=== PATIENT | female | born 1950 | race Caucasian/White ===

== ENCOUNTER → 2019-12-28 | Outpatient (CLI) | payer MEDICARE, OTHER ==
--- NOTE | 2019-12-28 11:47 | RAD ---
Examination: 1. Ultrasound-guided right breast core needle biopsy. 2. Right diagnostic post procedure mammogram. INDICATION: 69-year-old woman status post previous left mastectomy approximately 9 years ago for breast cancer presents with a palpable lump recommended for biopsy following right breast diagnostic imaging. COMPARISON: Right mammogram and targeted right breast ultrasound of 12/11/2019. TECHNIQUE AND FINDINGS: An appropriate procedural pause was observed and informed consent obtained. Using standard sterile technique, ultrasound guidance and local anesthesia, two 14-gauge core biopsy samples were obtained of the periareolar right breast mass at the 12:00 position and samples were placed in formalin. An S-shaped biopsy marker was deployed in the mass and hemostasis was ensured with direct breast compression for 10 minutes. A right digital postprocedure mammogram in the CC and ML projections showed satisfactory positioning of the biopsy marker at the margin of the mass with no postbiopsy hematoma. Patient tolerated the procedure without incident. The puncture site was dressed and postprocedure instructions were reviewed prior to patient discharge follow up with her referring provider. IMPRESSION: Successful right breast core needle biopsy of a palpable 2 cm lobulated mass at the right 12:00 position 0.5 cm from the nipple. Pathology results are pending. An addendum will be issued once pathology results available. Electronically signed by: Hanna Yanes MD (12/28/2019 11:44 AM) [id number]
--- NOTE | 2019-12-29 18:06 | PATHOLOGY ---
[facility] Accession Number: [id number] . 01 Material submitted: . breast - RIGHT BREAST MASS, 12:00, 0.5CMFN. Modifiers: right, 12:00 . 01 Clinical history: . Right breast mass 12:00 0.5 cm FN 2.0 cm . 02 Diagnosis: Breast tissue, right breast mass 12:00 needle biopsies: - INVASIVE DUCTAL CARCINOMA, HISTOLOGIC GRADE 2. SEE COMMENT. (JPM:[facility] 12/29/2019) [facility] 12/29/2019 1726 Local . 02 Comment: Sections of the right breast mass at 12:00 needle biopsy reveal an invasive mammary carcinoma. The tumor shows little tubule formation. Tumor cells show moderate nuclear pleomorphism. There are several mitotic figures present. The invasive carcinoma measures up to 0.7 cm in greatest dimension on the glass slide. The morphologic findings are supportive of the diagnosis of an invasive ductal carcinoma, grade 2. There are tumor associated calcifications. There is no lymphovascular tumor invasion. The case is also examined by Dr. Mei, who concurs with the diagnosis. . Breast prognostic studies will be obtained, the results of which will be reported separately. . The results are reported to Dr. Tenorio on 12/29/2019. (JPM:[facility] 12/29/2019) . 02 Electronically signed: . Ryan Sweet MD, Pathologist NPI- [id number] . 01 Gross description: . The specimen is received in formalin, labeled "Becka Garcia, right breast 12:00 0.5 cmFN" and consists of 2 needle cores of pink-palomo breast tissue measuring 1.2 cm and 1.3 cm in length and 0.2 cm each in diameter which are entirely submitted in A1-A2. They were collected at 10:45 AM on 12/28/2019 and placed in formalin at 10:45 AM. The cold ischemic time is less than 1 minute and the total formalin fixation time is greater than 6 hours but less than 72 hours. (SDY; 12/28/2019) SYU/[facility]U 12/28/2019 1714 Local . 02 Pathologist provided ICD-10: C50.911 . 02 CPT . 362474 Specimen Comment: A courtesy copy of this report has been sent to [phone], [phone] Specimen Comment: [id number], Specimen Comment: Report sent to ,DR TENORIO / Performed at: 01 [facility] [address], [place] [id number] MD Miguel Holman MD Phone: [phone] Performed at: 02 [facility] [address] [place], [place] [id number] MD Ryan Sweet MD Phone: [phone]
== END | disposition home or self-care (01) ==
LOC: US 09:55
PROVIDERS: ATTEND Surgery
DX: C50.911 Malignant neoplasm of unspecified site of right female breast (principal); Z86.000 Personal history of in-situ neoplasm of breast; Z87.898 Personal history of other specified conditions
CPT/HCPCS: 76942; 77065; 88305; 88361; C1713

== ENCOUNTER → 2020-01-13 | Outpatient (CLI) | payer MEDICARE, OTHER ==
[~2020-01-13] MED LIST: ATOR40TA59 PO; GLIP10TA13 PO; INSU100I13 SQ; LISI-130 PO; METF500T16 PO; SITA100T PO
== END | disposition home or self-care (01) ==
LOC: LAB 13:07
PROVIDERS: ATTEND Surgery
DX: Z11.59 Encounter for screening for other viral diseases (principal); C50.911 Malignant neoplasm of unspecified site of right female breast; Z88.0 Allergy status to penicillin; Z88.6 Allergy status to analgesic agent
CPT/HCPCS: U0003-CS

== ENCOUNTER 2020-01-18 10:11 | Observation (INO) | payer MEDICARE, OTHER ==
[~2020-01-18] VITALS: Ht 165.1 cm; Wt 77.0 kg
[~2020-01-18 10:11] MED LIST changes: -ATOR40TA59 PO; -GLIP10TA13 PO; +HYDROmorphone 2 MG/ML VIAL IV PRN; -INSU100I13 SQ; +ISOSULFAN BLUE 1% 50 MG/5 ML VIAL. SQ ONE; +IV RINGERS,LACTATED 1000ML 1,000 ML IV SCH; +LIDOCAINE 1% PF 2 ML VIAL. ID PRN; -LISI-130 PO; -METF500T16 PO; +MORPHINE SULFATE 2 MG/ML VIAL. IV PRN; +ONDANSETRON PF 4 MG/2 ML VIAL. IV PRN; +PROCHLORPERAZINE 10 MG/2 ML VIAL. IV PRN; -SITA100T PO; +fentaNYL PF VIAL 100 MCG/2 ML VIAL IV PRN
[2020-01-18] MEDS ORDERED: LIDOCAINE 2% PF 5 ML VIAL. ONE (10:26)
[2020-01-18] MEDS ORDERED: PROPOFOL 10 MG/ML (20ML) VIAL. IV ONE (10:26)
[2020-01-18] MEDS ORDERED: fentaNYL PF VIAL 100 MCG/2 ML VIAL ONE ×3 (10:27→14:39)
[2020-01-18] MEDS ORDERED: DEXAMETHASONE SOD PHOS 4 MG/ML VIAL ONE (10:27)
[2020-01-18] MEDS ORDERED: ONDANSETRON PF 4 MG/2 ML VIAL. ONE (10:27)
[2020-01-18] MEDS ORDERED: LISI-130 PO (10:58)
[2020-01-18] MEDS ORDERED: GLIP10TA13 PO (10:58)
[2020-01-18] MEDS ORDERED: METF500T16 PO (10:58)
[2020-01-18] MEDS ORDERED: ATOR40TA59 PO (10:59)
[2020-01-18] MEDS ORDERED: SITA100T PO (10:59)
[2020-01-18] MEDS ORDERED: INSULIN LISPRO 100 UNIT/ML 3ML VIAL for OP,RR ONLY. SQ PRN (11:15)
--- NOTE | 2020-01-18 13:53 | RAD ---
Right breast radiopharmaceutical Injection for sentinel node mapping. INDICATION: Recent diagnosis of right breast invasive breast cancer. Previous history of left breast cancer. COMPARISON: Ultrasound-guided right breast core needle biopsy of 12/28/2019. TECHNIQUE AND FINDINGS: An appropriate procedural pause was observed and informed consent obtained. Using standard sterile technique, a total of 1 mCi of lymphoseek was injected in a single periareolar injection in the right breast at 11:43 AM on 01/18/2020. Patient tolerated the procedure without incident. IMPRESSION: Successful right breast radiopharmaceutical injection for sentinel node mapping intraoperatively later the same day. Electronically signed by: Hanna Yanes MD (01/18/2020 1:50 PM) [id number]
[2020-01-18] MEDS ORDERED: SEVOFLURANE 61 TO 120 MINUTES. IH ONE (14:00)
--- NOTE | 2020-01-18 14:22 | PDOC4 ---
Operative Note Operative Note Operative Note: Preoperative Diagnosis: Right breast cancer Postoperative Diagnosis: Same Procedure: Right simple mastectomy with sentinel lymph node biopsy Surgeon: Delfino [employer] Inspector: ASHTYN Love Anesthesia: General EBL: 50 mL Specimen: Howell lymph node 1, 2 to pathology; right breast stitch at 12:00 to pathology Drains: 19 [place] BRENDON drain to chest wall Complications: None Indication: The patient is a 69-year-old female who was found to have a right breast cancer following recent biopsy. She has no interest in breast conservation and prefers a complete mastectomy. We plan to include a sentinel lymph node biopsy. The details and risks of surgery were discussed with the patient. The risks include bleeding, infection, wound healing problems, pain, anesthetic risk, seroma formation, potential need for additional surgery or procedure. She understands and would like to proceed. Description: The patient was taken to the operating room and placed supine on the operating table. General anesthesia was performed. The right breast and axilla were prepped with ChloraPrep and draped in a standard surgical manner. Five mL of Lymphazurin were injected deep to the nipple and areolar complex. Several minutes were allowed to elapse. An elliptical tracing was made around the nipple and areola extending from the medial to lateral chest. The superior lateral aspect of this tracing was then opened with a scalpel. Cautery dissecti on was carried down into the axillary tissues. The radio guided probe showed an area of marked nuclear uptake. Dissection in that direction showed a blue staining lymph node with a blue channel leading to it. This lymph node was harvested from surrounding tissues and sent as sentinel lymph node #1. Further inspection showed another area of an increased nuclear uptake corresponding to an enlarged lymph node. This was also mobilized from the surrounding tissues and sent to pathology. There were no other areas of marked increased uptake and no palpable lymph nodes. Frozen section of the sentinel lymph nodes was negative for metastasis. We then proceeded with the mastectomy. The subcutaneous flaps were developed starting with the superior flap. The skin was mobilized from the deeper breast parenchyma to the level below the clavicle. In a similar manner the inferior skin flap was developed it from the breast parenchyma which included the inframammary fold. In a medial to lateral fashion the breast was taken off of the chest wall. Several small blood vessels were readily controlled with cautery. The breast was fully excised and a stitch marked the 12 o'clock position and it was sent to pathology. Hemostasis was good and no other abnormalities were noted. A 19 [place] round Myron drain was left in the chest wall which exited inferiorly. This was secured to the skin with 2-0 silk. The subcutaneous tissues were closed with interrupted 3-0 Vicryl. The skin was approximated with 4-0 Monocryl. A sterile OpSite dressing was then applied. The patient tolerated the procedure well and was sent to the recovery room in stable condition. At the end of the case all counts were correct. GUIDO TENORIO MD Jan 18, 2020 14:22
[2020-01-18] MEDS: IV NORMAL SALINE 1000ML BAG 1,000 ML IV SCH (14:24)
[2020-01-18] MEDS ORDERED: ONDANSETRON PF 4 MG/2 ML VIAL. IVP PRN (14:30)
[2020-01-18] MEDS ORDERED: NALOXONE 0.4 MG/ML VIAL. IV PRN (14:30)
[2020-01-18] MEDS ORDERED: 0.9 % SODIUM CHLORIDE 10 ML DISP.SYRIN. IV PRN (14:30)
[2020-01-18] MEDS ORDERED: HYDROmorphone 2 MG/ML VIAL IV PRN (14:30)
[2020-01-18] MEDS ORDERED: HYDROcodone/APAP 5/325MG 1 TAB TABLET PO PRN ×2 (14:30)
[2020-01-18] MEDS ORDERED: PROCHLORPERAZINE 10 MG/2 ML VIAL. IV PRN (14:30)
[2020-01-18] MEDS: fentaNYL PF VIAL 100 MCG/2 ML VIAL IV PRN ×2 (15:15→15:30)
[2020-01-18 15:55] VITALS: BP 140/54
[2020-01-18 16:15] VITALS: BP 142/61
[2020-01-18] MEDS: metFORMIN 500 MG TABLET PO SCH (17:00)
[2020-01-18 19:00] VITALS: BP 122/63
[2020-01-18] MEDS: IV 1/2 NORMAL SALINE 1,000 ML IV SCH (19:34)
[2020-01-18] MEDS: ATORVASTATIN CALCIUM 40 MG TABLET. PO SCH (20:48)
[2020-01-18 23:00] VITALS: BP 111/43
[2020-01-19] MEDS: oxyCODONE/APAP 5/325 1 TAB TABLET PO PRN ×4 (02:06→17:25)
[2020-01-19 03:00] VITALS: BP 103/39
[2020-01-19] MEDS: IV 1/2 NORMAL SALINE 1,000 ML IV SCH (03:30)
[2020-01-19 07:00] VITALS: BP 120/42
[2020-01-19] MEDS: LISINOPRIL 20 MG TABLET PO SCH (08:07)
[2020-01-19] MEDS: glipiZIDE 5 MG TABLET PO SCH (08:07)
[2020-01-19] MEDS: metFORMIN 500 MG TABLET PO SCH ×2 (08:07→17:24)
[2020-01-19] MEDS: LINAGLIPTIN 5 MG TABLET PO SCH (08:08)
--- NOTE | 2020-01-19 10:40 | NUR ---
SW following. Discussed with RN, pt from home, room air, ADA diet. Pt had surgery yesterday. RN advised no SW needs and anticipates possible discharge home today with self care. SW will continue to follow should any discharge needs arise.
[2020-01-19 11:00] VITALS: BP 135/56
--- NOTE | 2020-01-19 11:13 | PDOC ---
JUDD CAMACHO WRITER 01/19/20 1113: SURGICAL PROGRESS NOTE Subjective feels well pain minimal no nausea urinating Vital Signs Vital Signs Date Time Temp Pulse Resp B/P (MAP) Pulse Ox O2 Delivery O2 Flow Rate FiO2 01/19/20 08:00 Room Air 01/19/20 07:00 98.2 97 18 120/42 (68) 98 98.2 01/18/20 15:30 2.0 I&O Intake and Output 01/19/20 06:59 Intake Total 1750 ml Output Total 250 ml Balance 1500 ml Intake Oral 300 ml IV Total 1450 ml Output Drainage Total 200 ml Estimated Blood Loss 50 ml # Voids 1 General: Alert, Oriented X3, Cooperative Skin: Other (right breast incision intact, drain serosang ) Labs Laboratory Tests Test 01/18/20 11:06 01/18/20 14:48 01/18/20 21:10 01/19/20 07:11 Glucose (Fingerstick) 175 mg/dL (70-99) 152 mg/dL (70-99) 281 mg/dL (70-99) 254 mg/dL (70-99) Test 01/19/20 10:48 Glucose (Fingerstick) 254 mg/dL (70-99) Laboratory Tests Test 01/18/20 14:48 01/18/20 21:10 01/19/20 07:11 01/19/20 10:48 Glucose (Fingerstick) 152 mg/dL (70-99) 281 mg/dL (70-99) 254 mg/dL (70-99) 254 mg/dL (70-99) Assessment/Plan s/p mastectomy BS 250 today--will ask IPC to assist prior to discharge drain teaching Justicifation of Admission Dx: Justifications for Admission: Justification of Admission Dx: Yes Comments: breast cancer, s/p mastectomy GUIDO TENORIO MD 01/20/20 1328: SURGICAL PROGRESS NOTE Assessment/Plan Agree with above JUDD CAMACHO APRN Jan 19, 2020 11:13 GUIDO TENORIO MD Jan 20, 2020 13:28
--- NOTE | 2020-01-19 12:16 | PDOC1 ---
History and Physical Date of Admission Date of Admission DATE: 01/19/20 TIME: 12:16 Identification/Chief Complaint Chief Complaint consult for diabetes management post-op , hypokalemia Past Medical History Past Medical History breast cancer 2010 Musculoskeletal: Osteoarthritis Endocrine: Diabetes Past Surgical History Past Surgical History: Breast Biopsy, Mastectomy, Other (back surgery remote) Family History Family History: Diabetes Family History: Parent Social History Smoke: <1 pack per day ALCOHOL: occassional Drugs: None, Other (WORKS [employer]) Current Medications Current Medications Current Medications Ondansetron HCl (Zofran) 4 mg PRN Q6HRS PRN IV NAUSEA/VOMITING Last administered on 01/18/20at 19:46; Start 01/18/20 at 07:00; Stop 01/19/20 at 06:59; Status DC Fentanyl Citrate (Fentanyl 2ml Vial) 25 mcg PRN Q5MIN PRN IV MILD PAIN 1-3 Last administered on 01/18/20at 15:30; Start 01/18/20 at 07:00; Stop 01/19/20 at 06:59; Status DC Fentanyl Citrate (Fentanyl 2ml Vial) 50 mcg PRN Q5MIN PRN IV MODERATE TO SEVERE PAIN Last administered on 01/18/20at 15:00; Start 01/18/20 at 07:00; Stop 01/19/20 at 06:59; Status DC Morphine Sulfate (Morphine Sulfate) 1 mg PRN Q10MIN PRN IV SEVERE PAIN 7-10; Start 01/18/20 at 07:00; Stop 01/19/20 at 06:59; Status DC Ringer's Solution 1,000 ml @ 30 mls/hr Q24H IV Last administered on 01/18/20at 11:07; Start 01/18/20 at 07:00; Stop 01/18/20 at 18:59; Status DC Lidocaine HCl (Xylocaine-Mpf 1% 2ml Vial) 2 ml PRN 1X PRN ID PRIOR TO IV START; Start 01/18/20 at 07:00; Stop 01/19/20 at 06:59; Status DC Hydromorphone HCl (Dilaudid) 0.5 mg PRN Q10MIN PRN IV SEV PAIN, Second choice Last administered on 01/18/20at 19:34; Start 01/18/20 at 07:00; Stop 01/19/20 at 06:59; Status DC Prochlorperazine Edisylate (Compazine) 5 mg PACU PRN PRN IV NAUSEA, MRX1; Start 01/18/20 at 07:00; Stop 01/19/20 at 06:59; Status DC Levofloxacin/ Dextrose 150 ml @ 100 mls/hr 1X PREOP PRN IV PRIOR TO PROCEDURE Last administered on 01/18/20at 12:05; Start 01/18/20 at 06:00; Stop 01/18/20 at 18:00; Status DC Isosulfan Blue (Lymphazurin Blue) 50 mg STK-MED ONCE SQ Last administered on 01/18/20at 12:40; Start 01/18/20 at 10:04; Stop 01/18/20 at 10:04; Status DC Propofol (Diprivan) 200 mg STK-MED ONCE IV ; Start 01/18/20 at 10:26; Stop 01/18/20 at 10:27; Status DC Lidocaine HCl (Lidocaine Pf 2% Vial) 5 ml STK-MED ONCE .ROUTE ; Start 01/18/20 at 10:26; Stop 01/18/20 at 10:27; Status DC Dexamethasone Sodium Phosphate (Decadron) 4 mg STK-MED ONCE .ROUTE ; Start 01/18/20 at 10:27; Stop 01/18/20 at 10:27; Status DC Ondansetron HCl (Zofran) 4 mg STK-MED ONCE .ROUTE ; Start 01/18/20 at 10:27; Stop 01/18/20 at 10:27; Status DC Fentanyl Citrate (Fentanyl 2ml Vial) 100 mcg STK-MED ONCE .ROUTE ; Start 01/18/20 at 10:27; Stop 01/18/20 at 10:27; Status DC Insulin Human Lispro (HumaLOG VIAL for OP,RR ONLY) 0-10 units PRN Q1HR PRN SQ PER PROTOCOL Last administered on 01/18/20at 11:13; Start 01/18/20 at 11:15; Stop 01/19/20 at 11:14; Status DC Fentanyl Citrate (Fentanyl 2ml Vial) 100 mcg STK-MED ONCE .ROUTE ; Start 01/18/20 at 13:05; Stop 01/18/20 at 13:05; Status DC Sevoflurane (Ultane) 60 ml STK-MED ONCE IH ; Start 01/18/20 at 14:00; Stop 01/18/20 at 14:00; Status DC Sodium Chloride (Normal Saline Flush) 3 ml QSHIFT PRN IV AFTER MEDS AND BLOOD DRAWS; Start 01/18/20 at 14:30 Sodium Chloride 1,000 ml @ 80 mls/hr [id number] IV Last administered on 01/18/20at 19:34; Start 01/18/20 at 15:00 Acetaminophen/ Hydrocodone Bitart (Lortab 5/325) 1 tab PRN Q4HRS PRN PO MILD PAIN 1-3; Start 01/18/20 at 14:30 Acetaminophen/ Hydrocodone Bitart (Lortab 5/325) 2 tab PRN Q4HRS PRN PO MODERATE PAIN, SEVERE PAIN; Start 01/18/20 at 14:30 Naloxone HCl (Narcan) 0.4 mg PRN Q2MIN PRN IV SEE INSTRUCTIONS; Start 01/18/20 at 14:30 Sodium Chloride 1,000 ml @ 25 mls/hr Q24H IV ; Start 01/18/20 at 14:24 Hydromorphone HCl (Dilaudid) 0.2 mg PRN Q1HR PRN IV PAIN; Start 01/18/20 at 14:30 Ondansetron HCl (Zofran) 4 mg PRN Q6HRS PRN IVP NAUESA, 1ST CHOICE; Start 01/18/20 at 14:30 Prochlorperazine Edisylate (Compazine) 5 mg PRN Q6HRS PRN IV N/V, 2nd Choice, MR X1; Start 01/18/20 at 14:30 Atorvastatin Calcium (Lipitor) 40 mg QHS PO Last administered on 01/18/20at 20:48; Start 01/18/20 at 21:00 Lisinopril (Prinivil) 40 mg DAILY PO ; Start 01/19/20 at 09:00 Metformin HCl (Glucophage) 500 mg BIDWMEALS PO Last administered on 01/19/20at 08:07; Start 01/18/20 at 17:00 Glipizide (Glucotrol) 20 mg DAILYWBKFT PO Last administered on 01/19/20at 08:07; Start 01/19/20 at 08:00 Linagliptin (Tradjenta) 5 mg DAILY PO Last administered on 01/19/20at 08:08; Start 01/19/20 at 09:00 Fentanyl Citrate (Fentanyl 2ml Vial) 100 mcg STK-MED ONCE .ROUTE ; Start 01/18/20 at 14:39; Stop 01/18/20 at 14:39; Status DC Oxycodone/ Acetaminophen (Percocet 5/325) 1 tab PRN Q4HRS PRN PO PAIN Last administered on 01/19/20at 06:00; Start 01/18/20 at 19:30 Active Scripts Active Reported Januvia (Sitagliptin Phosphate) 100 Mg Tablet 100 Mg PO DAILY Atorvastatin Calcium 40 Mg Tablet 40 Mg PO DAILY Lisinopril 40 Mg Tablet 40 Mg PO DAILY Glipizide 10 Mg Tablet 20 Mg PO DAILY Metformin Hcl 500 Mg Tablet 500 Mg PO BIDWMEALS Allergies Allergies: Coded Allergies: Penicillins (Verified Allergy, Intermediate, 01/17/20) aspirin (Verified Allergy, Intermediate, 01/17/20) hydrocodone (Verified Allergy, Mild, 01/18/20) ROS Review of System 14 pt ros otherwise neg except for postop pain General: No: Chills, Night Sweats, Fatigue, Malaise, Appetite, Other PSYCHOLOGICAL ROS: No: Anxiety, Behavioral Disorder, Concentration difficultie, Decreased libido, Depression, Disorientation, Hallucinations, Hostility, Irritablity, Memory difficulties, Mood Swings, Obsessive thoughts, Physical abuse, Sexual abuse, Sleep disturbances, Suicidal ideation, Other Eyes: No Blurry vision, No Decreased vision, No Double vision, No Dry eyes, No Excessive tearing, No Eye Pain, No Itchy Eyes, No Loss of vision, No Photophobia, No Scotomata, No Uses contacts, No Uses glasses, No Other HEENT: No: Heacaches, Visual Changes, Hearing change, Nasal congestion, Nasal discharge, Oral lesions, Sinus pain, Sore Throat, Epistaxis, Sneezing, Snoring, Tinnitus, Vertigo, Vocal changes, Other Hematological and Lymphatic: No: Bleeding Problems, Blood Clots, Blood Transfusions, Brusing, Night Sweats, Pallor, Swollen Lymph Nodes, Other ENDOCRINE: YES: Breast Changes Respiratory: No: Cough, Hemoptysis, Orthopnea, Pleuritic Pain, Shortness of breath, SOB with excertion, Sputum Changes, Stridor, Tachypnea, Wheezing, Other Cardiovascular: No Chest Pain, No Palpitations, No Orthopnea, No Paroxysmal Noc. Dyspnea, No Edema, No Lt Headedness, No Other Gastrointestinal: No Nausea, No Vomiting, No Abdominal Pain, No Diarrhea, No Constipation, No Melena, No Hematochezia, No Other Genitourinary: No Dysuria, No Frequency, No Incontinence, No Hematuria, No Retention, No Discharge, No Urgency, No Pain, No Flank Pain, No Other, No , No , No , No , No , No , No Musculoskeletal: No Gait Disturbance, No Joint Pain, No Joint Stiffness, No Joint Swelling, No Muscle Pain, No Muscular Weakness, No Pain In:, No Swelling In:, No Other Neurological: No Behavorial Changes, No Bowel/Bladder ControlChng, No Confusion, No Dizziness, No Gait Disturbance, No Headaches, No Impaired Coord/balance, No Memory Loss, No Numbness/Tingling, No Seizures, No Speech Problems, No Tremors, No Visual Changes, No Weakness, No Other Skin: No Dry Skin, No Eczema, No Hair Changes, No Lumps, No Mole Changes, No Mottling, No Nail Changes, No Pruritus, No Rash, No Skin Lesion Changes, No Other, No Acne Physical Exam General: Alert, Oriented X3, Cooperative, No acute distress HEENT: Atraumatic, PERRLA, EOMI, Mucous membr. moist/pink Lungs: Clear to auscultation, Normal air movement Heart: S1S2, RRR Breasts: Not examined Abdomen: Normal bowel sounds, Soft Rectal Exam: not examined Extremities: No cyanosis Neuro: Normal speech, Strength at 5/5 X4 ext, Sensation intact, Cranial nerves 3-12 NL Psych/Mental Status: Mental status NL, Mood NL Vitals Vitals Vital Signs Date Time Temp Pulse Resp B/P (MAP) Pulse Ox O2 Delivery O2 Flow Rate FiO2 01/19/20 11:00 97.8 96 18 135/56 (82) 95 Room Air 97.8 01/18/20 15:30 2.0 Labs Labs Laboratory Tests Test 01/18/20 11:06 01/18/20 14:48 01/18/20 21:10 01/19/20 07:11 Glucose (Fingerstick) 175 mg/dL (70-99) 152 mg/dL (70-99) 281 mg/dL (70-99) 254 mg/dL (70-99) Test 01/19/20 10:48 Glucose (Fingerstick) 254 mg/dL (70-99) Laboratory Tests Test 01/18/20 14:48 01/18/20 21:10 01/19/20 07:11 01/19/20 10:48 Glucose (Fingerstick) 152 mg/dL (70-99) 281 mg/dL (70-99) 254 mg/dL (70-99) 254 mg/dL (70-99) Images Images [facility] Accession Number: [id number] . 01 Material submitted: . breast - RIGHT BREAST MASS, 12:00, 0.5CMFN. Modifiers: right, 12:00 . 01 Clinical history: . Right breast mass 12:00 0.5 cm FN 2.0 cm . 02 Diagnosis: Breast tissue, right breast mass 12:00 needle biopsies: - INVASIVE DUCTAL CARCINOMA, HISTOLOGIC GRADE 2. SEE COMMENT. (JPM:[facility] 12/29/2019) [facility] 12/29/2019 1726 Local . 02 Comment: Sections of the right breast mass at 12:00 needle biopsy reveal an invasive mammary carcinoma. The tumor shows little tubule formation. Tumor cells show moderate nuclear pleomorphism. There are several mitotic figures present. The invasive carcinoma measures up to 0.7 cm in greatest dimension on the glass slide. The morphologic findings are supportive of the diagnosis of an invasive ductal carcinoma, grade 2. There are tumor associated calcifications. There is no lymphovascular tumor invasion. The case is also examined by Dr. Mei, who concurs with the diagnosis. . VTE Prophylaxis Ordered VTE Prophylaxis Devices: Yes VTE Pharmacological Prophylaxi: Yes Assessment/Plan Assessment/Plan impression 1. post- OP right MASTECTOMY DAY# 1 INVASIVE DUCTAL CARCINOMA, HISTOLOGIC GRADE 2. 2. DIABETES 3. Tobacco abuse disorder 4. HYPOKALEMIA 5. Anemia, normocytic, post-op 6. ARIELLE plan SS INSULIN replace k po IV FLUID SUPPORT DVT PROPHYLAXIS HOME MEDS A1C D/W RN Justicifation of Admission Dx: Justifications for Admission: Justification of Admission Dx: Yes GRANT FRIED MD Jan 19, 2020 12:16
[2020-01-19] MEDS ORDERED: DEXTROSE 50% 25 GM / 50ML DISP.SYRIN. IV PRN (12:30)
[2020-01-19] MEDS: INSULIN LISPRO 300 UNITS/3 ML VIAL. SQ SCH ×2 (12:54→17:00)
[2020-01-19 13:51] LABS: BASO % 0 % (0-3); EOS # 0.2 x10^3/uL (0.0-0.7); EOS % 2 % (0-3); HEMATOCRIT 25.5 % (36.0-47.0); LYMPH # 2.6 x10^3/uL (1.0-4.8); LYMPH % 27 % (24-48); MEAN CORPUSCULAR HEMOGLOBIN 31 pg (25-35); MEAN CORPUSCULAR HGB CONC 35 g/dL (31-37); MEAN CORPUSCULAR VOLUME 87 fL (79-100); MONO # 0.7 x10^3/uL (0.0-1.1); MONO % 7 % (0-9); NEUT # 6.3 x10^3/uL (1.8-7.7); NEUT % 64 % (31-73); PLATELET COUNT 281 x10^3/uL (140-400); RED BLOOD COUNT 2.93 x10^6/uL (3.50-5.40); RED CELL DISTRIBUTION WIDTH 12.8 % (11.5-14.5); WHITE BLOOD COUNT 9.9 x10^3/uL (4.0-11.0)
[2020-01-19 14:07] LABS: ALBUMIN/GLOBULIN RATIO 1.3 (1.0-1.7); CREATININE 1.2 mg/dL (0.6-1.0); GFR 44.5; POTASSIUM 3.2 mmol/L (3.5-5.1); TOTAL BILIRUBIN 0.4 mg/dL (0.2-1.0); TOTAL PROTEIN 5.4 g/dL (6.4-8.2)
[2020-01-19] MEDS: IV NORMAL SALINE 1000ML BAG 1,000 ML IV SCH ×2 (14:24→17:24)
[2020-01-19 14:56] VITALS: BP 124/39
[2020-01-19 15:27] LABS: BILIRUBIN,URINE NEGATIVE (NEG); CLARITY,URINE CLEAR; NITRITE,URINE NEGATIVE (NEG); PH,URINE 5.5 (<5.0-8.0); PROTEIN,URINE NEGATIVE (NEG-TRACE)
[2020-01-19 15:49] LABS: COLOR,URINE GREEN
[2020-01-19 15:50] LABS: BACTERIA,URINE MODERATE /HPF (0-FEW); SQUAMOUS EPITHELIAL CELL,UR MOD /LPF
[2020-01-19 15:51] LABS: RBC,URINE 0 /HPF (0-2)
[2020-01-19] MEDS ORDERED: POTASSIUM CHLORIDE 20 MEQ TABLET.ER. PO ONE (17:00)
[2020-01-19 19:00] VITALS: BP 147/69
[2020-01-19] MEDS: ATORVASTATIN CALCIUM 40 MG TABLET. PO SCH (21:05)
[2020-01-19 23:00] VITALS: BP 121/45
[2020-01-20 03:00] VITALS: BP 150/61
[2020-01-20 03:08] LABS: HEMOGLOBIN A1C 8.7 % (4.8-5.6)
[2020-01-20 04:41] LABS: BASO # 0.1 x10^3/uL (0.0-0.2); BASO % 1 % (0-3); EOS # 0.3 x10^3/uL (0.0-0.7); EOS % 3 % (0-3); HEMOGLOBIN 8.5 g/dL (12.0-15.5); LYMPH # 3.2 x10^3/uL (1.0-4.8); LYMPH % 36 % (24-48); MEAN CORPUSCULAR HEMOGLOBIN 31 pg (25-35); MEAN CORPUSCULAR HGB CONC 35 g/dL (31-37); MEAN CORPUSCULAR VOLUME 87 fL (79-100); MONO # 0.7 x10^3/uL (0.0-1.1); MONO % 7 % (0-9); NEUT # 4.7 x10^3/uL (1.8-7.7); NEUT % 53 % (31-73); PLATELET COUNT 266 x10^3/uL (140-400); RED BLOOD COUNT 2.76 x10^6/uL (3.50-5.40); RED CELL DISTRIBUTION WIDTH 12.6 % (11.5-14.5); WHITE BLOOD COUNT 8.9 x10^3/uL (4.0-11.0)
[2020-01-20 05:07] LABS: POTASSIUM 3.9 mmol/L (3.5-5.1)
[2020-01-20] MEDS: IV NORMAL SALINE 1000ML BAG 1,000 ML IV SCH (06:18)
[2020-01-20 07:15] VITALS: BP 117/56
[2020-01-20] MEDS ORDERED: metFORMIN 500 MG TABLET PO SCH (07:30)
[2020-01-20] MEDS ORDERED: POTASSIUM CHLORIDE 20 MEQ TABLET.ER. PO SCH (08:00)
--- NOTE | 2020-01-20 08:46 | PDOC ---
PROGRESS NOTES Chief Complaint Chief Complaint INVASIVE DUCTAL CARCINOMA, HISTOLOGIC GRADE 2. - post- OP 01/17 right simple MASTECTOMY with sentinel node biopsy Type 2 DIABETES Tobacco abuse disorder HYPOKALEMIA Anemia, normocytic ARIELLE History of Present Illness History of Present Illness Ms Garcia is a 69yo F w/ PMHx DM2 and recent diagnosis on 12/29/2019 of invasive ductal carcinoma, grade 2 who was admitted for simple mastectomy and sentinel lymph node biopsy on 01/18/2020. Medicine service consulted for diabetes management post-op , hypokalemia She is feeling depressed, pain reasonably controlled. Worried about taking insulin at home. Plan: 10u lantus QHS Glucometer at home Vitals Vitals Vital Signs Date Time Temp Pulse Resp B/P (MAP) Pulse Ox O2 Delivery O2 Flow Rate FiO2 01/20/20 07:15 97.9 101 20 117/56 (76) 98 Room Air 97.9 Physical Exam General: Alert, Oriented X3, Cooperative, No acute distress Abdomen: Normal bowel sounds, Soft Extremities: No cyanosis Skin: Other (right breast incision intact, drain serosang ) Labs LABS Laboratory Tests Test 01/19/20 10:48 01/19/20 13:40 01/19/20 14:45 01/19/20 16:44 Glucose (Fingerstick) 254 mg/dL (70-99) 131 mg/dL (70-99) White Blood Count 9.9 x10^3/uL (4.0-11.0) Red Blood Count 2.93 x10^6/uL (3.50-5.40) Hemoglobin 9.0 g/dL (12.0-15.5) Hematocrit 25.5 % (36.0-47.0) Mean Corpuscular Volume 87 fL (79-100) Mean Corpuscular Hemoglobin 31 pg (25-35) Mean Corpuscular Hemoglobin Concent 35 g/dL (31-37) Red Cell Distribution Width 12.8 % (11.5-14.5) Platelet Count 281 x10^3/uL (140-400) Neutrophils (%) (Auto) 64 % (31-73) Lymphocytes (%) (Auto) 27 % (24-48) Monocytes (%) (Auto) 7 % (0-9) Eosinophils (%) (Auto) 2 % (0-3) Basophils (%) (Auto) 0 % (0-3) Neutrophils # (Auto) 6.3 x10^3/uL (1.8-7.7) Lymphocytes # (Auto) 2.6 x10^3/uL (1.0-4.8) Monocytes # (Auto) 0.7 x10^3/uL (0.0-1.1) Eosinophils # (Auto) 0.2 x10^3/uL (0.0-0.7) Basophils # (Auto) 0.0 x10^3/uL (0.0-0.2) Sodium Level 134 mmol/L (136-145) Potassium Level 3.2 mmol/L (3.5-5.1) Chloride Level 97 mmol/L (98-107) Carbon Dioxide Level 27 mmol/L (21-32) Anion Gap 10 (6-14) Blood Urea Nitrogen 12 mg/dL (7-20) Creatinine 1.2 mg/dL (0.6-1.0) Estimated GFR (Cockcroft-Gault) 44.5 BUN/Creatinine Ratio 10 (6-20) Glucose Level 214 mg/dL (70-99) Hemoglobin A1c 8.7 % (4.8-5.6) Calcium Level 8.0 mg/dL (8.5-10.1) Iron Level 60 ug/dL (50-170) Total Iron Binding Capacity 255 ug/dL (250-450) Iron Saturation 24 % (15-34) Total Bilirubin 0.4 mg/dL (0.2-1.0) Aspartate Amino Transf (AST/SGOT) 8 U/L (15-37) Alanine Aminotransferase (ALT/SGPT) 20 U/L (14-59) Alkaline Phosphatase 50 U/L (46-116) Total Protein 5.4 g/dL (6.4-8.2) Albumin 3.0 g/dL (3.4-5.0) Albumin/Globulin Ratio 1.3 (1.0-1.7) Urine Collection Type Unknown Urine Color Green Urine Clarity Clear Urine pH 5.5 (<5.0-8.0) Urine Specific [place] 1.010 (1.000-1.030) Urine Protein Negative mg/dL (NEG-TRACE) Urine Glucose (UA) Negative mg/dL (NEG) Urine Ketones (Stick) Negative mg/dL (NEG) Urine Blood Negative (NEG) Urine Nitrite Negative (NEG) Urine Bilirubin Negative (NEG) Urine Urobilinogen Dipstick 1.0 mg/dL (0.2 mg/dL) Urine Leukocyte Esterase Moderate (NEG) Urine RBC 0 /HPF (0-2) Urine WBC 11-20 /HPF (0-4) Urine Squamous Epithelial Cells Mod /LPF Urine Bacteria Moderate /HPF (0-FEW) Test 01/19/20 21:37 01/20/20 04:30 01/20/20 07:20 Glucose (Fingerstick) 198 mg/dL (70-99) 193 mg/dL (70-99) White Blood Count 8.9 x10^3/uL (4.0-11.0) Red Blood Count 2.76 x10^6/uL (3.50-5.40) Hemoglobin 8.5 g/dL (12.0-15.5) Hematocrit 24.0 % (36.0-47.0) Mean Corpuscular Volume 87 fL (79-100) Mean Corpuscular Hemoglobin 31 pg (25-35) Mean Corpuscular Hemoglobin Concent 35 g/dL (31-37) Red Cell Distribution Width 12.6 % (11.5-14.5) Platelet Count 266 x10^3/uL (140-400) Neutrophils (%) (Auto) 53 % (31-73) Lymphocytes (%) (Auto) 36 % (24-48) Monocytes (%) (Auto) 7 % (0-9) Eosinophils (%) (Auto) 3 % (0-3) Basophils (%) (Auto) 1 % (0-3) Neutrophils # (Auto) 4.7 x10^3/uL (1.8-7.7) Lymphocytes # (Auto) 3.2 x10^3/uL (1.0-4.8) Monocytes # (Auto) 0.7 x10^3/uL (0.0-1.1) Eosinophils # (Auto) 0.3 x10^3/uL (0.0-0.7) Basophils # (Auto) 0.1 x10^3/uL (0.0-0.2) Sodium Level 135 mmol/L (136-145) Potassium Level 3.9 mmol/L (3.5-5.1) Chloride Level 102 mmol/L (98-107) Carbon Dioxide Level 25 mmol/L (21-32) Anion Gap 8 (6-14) Blood Urea Nitrogen 11 mg/dL (7-20) Creatinine 1.0 mg/dL (0.6-1.0) Estimated GFR (Cockcroft-Gault) 55.0 Glucose Level 214 mg/dL (70-99) Calcium Level 8.0 mg/dL (8.5-10.1) Comment Review of Relevant I have reviewed the following items elodia (where applicable) has been applied. Labs Laboratory Tests Test 01/18/20 11:06 01/18/20 14:48 01/18/20 21:10 01/19/20 07:11 Glucose (Fingerstick) 175 mg/dL (70-99) 152 mg/dL (70-99) 281 mg/dL (70-99) 254 mg/dL (70-99) Test 01/19/20 10:48 01/19/20 13:40 01/19/20 14:45 01/19/20 16:44 Glucose (Fingerstick) 254 mg/dL (70-99) 131 mg/dL (70-99) White Blood Count 9.9 x10^3/uL (4.0-11.0) Red Blood Count 2.93 x10^6/uL (3.50-5.40) Hemoglobin 9.0 g/dL (12.0-15.5) Hematocrit 25.5 % (36.0-47.0) Mean Corpuscular Volume 87 fL (79-100) Mean Corpuscular Hemoglobin 31 pg (25-35) Mean Corpuscular Hemoglobin Concent 35 g/dL (31-37) Red Cell Distribution Width 12.8 % (11.5-14.5) Platelet Count 281 x10^3/uL (140-400) Neutrophils (%) (Auto) 64 % (31-73) Lymphocytes (%) (Auto) 27 % (24-48) Monocytes (%) (Auto) 7 % (0-9) Eosinophils (%) (Auto) 2 % (0-3) Basophils (%) (Auto) 0 % (0-3) Neutrophils # (Auto) 6.3 x10^3/uL (1.8-7.7) Lymphocytes # (Auto) 2.6 x10^3/uL (1.0-4.8) Monocytes # (Auto) 0.7 x10^3/uL (0.0-1.1) Eosinophils # (Auto) 0.2 x10^3/uL (0.0-0.7) Basophils # (Auto) 0.0 x10^3/uL (0.0-0.2) Sodium Level 134 mmol/L (136-145) Potassium Level 3.2 mmol/L (3.5-5.1) Chloride Level 97 mmol/L (98-107) Carbon Dioxide Level 27 mmol/L (21-32) Anion Gap 10 (6-14) Blood Urea Nitrogen 12 mg/dL (7-20) Creatinine 1.2 mg/dL (0.6-1.0) Estimated GFR (Cockcroft-Gault) 44.5 BUN/Creatinine Ratio 10 (6-20) Glucose Level 214 mg/dL (70-99) Hemoglobin A1c 8.7 % (4.8-5.6) Calcium Level 8.0 mg/dL (8.5-10.1) Iron Level 60 ug/dL (50-170) Total Iron Binding Capacity 255 ug/dL (250-450) Iron Saturation 24 % (15-34) Total Bilirubin 0.4 mg/dL (0.2-1.0) Aspartate Amino Transf (AST/SGOT) 8 U/L (15-37) Alanine Aminotransferase (ALT/SGPT) 20 U/L (14-59) Alkaline Phosphatase 50 U/L (46-116) Total Protein 5.4 g/dL (6.4-8.2) Albumin 3.0 g/dL (3.4-5.0) Albumin/Globulin Ratio 1.3 (1.0-1.7) Urine Collection Type Unknown Urine Color Green Urine Clarity Clear Urine pH 5.5 (<5.0-8.0) Urine Specific [place] 1.010 (1.000-1.030) Urine Protein Negative mg/dL (NEG-TRACE) Urine Glucose (UA) Negative mg/dL (NEG) Urine Ketones (Stick) Negative mg/dL (NEG) Urine Blood Negative (NEG) Urine Nitrite Negative (NEG) Urine Bilirubin Negative (NEG) Urine Urobilinogen Dipstick 1.0 mg/dL (0.2 mg/dL) Urine Leukocyte Esterase Moderate (NEG) Urine RBC 0 /HPF (0-2) Urine WBC 11-20 /HPF (0-4) Urine Squamous Epithelial Cells Mod /LPF Urine Bacteria Moderate /HPF (0-FEW) Test 01/19/20 21:37 01/20/20 04:30 01/20/20 07:20 Glucose (Fingerstick) 198 mg/dL (70-99) 193 mg/dL (70-99) White Blood Count 8.9 x10^3/uL (4.0-11.0) Red Blood Count 2.76 x10^6/uL (3.50-5.40) Hemoglobin 8.5 g/dL (12.0-15.5) Hematocrit 24.0 % (36.0-47.0) Mean Corpuscular Volume 87 fL (79-100) Mean Corpuscular Hemoglobin 31 pg (25-35) Mean Corpuscular Hemoglobin Concent 35 g/dL (31-37) Red Cell Distribution Width 12.6 % (11.5-14.5) Platelet Count 266 x10^3/uL (140-400) Neutrophils (%) (Auto) 53 % (31-73) Lymphocytes (%) (Auto) 36 % (24-48) Monocytes (%) (Auto) 7 % (0-9) Eosinophils (%) (Auto) 3 % (0-3) Basophils (%) (Auto) 1 % (0-3) Neutrophils # (Auto) 4.7 x10^3/uL (1.8-7.7) Lymphocytes # (Auto) 3.2 x10^3/uL (1.0-4.8) Monocytes # (Auto) 0.7 x10^3/uL (0.0-1.1) Eosinophils # (Auto) 0.3 x10^3/uL (0.0-0.7) Basophils # (Auto) 0.1 x10^3/uL (0.0-0.2) Sodium Level 135 mmol/L (136-145) Potassium Level 3.9 mmol/L (3.5-5.1) Chloride Level 102 mmol/L (98-107) Carbon Dioxide Level 25 mmol/L (21-32) Anion Gap 8 (6-14) Blood Urea Nitrogen 11 mg/dL (7-20) Creatinine 1.0 mg/dL (0.6-1.0) Estimated GFR (Cockcroft-Gault) 55.0 Glucose Level 214 mg/dL (70-99) Calcium Level 8.0 mg/dL (8.5-10.1) Laboratory Tests Test 01/19/20 10:48 01/19/20 13:40 01/19/20 14:45 01/19/20 16:44 Glucose (Fingerstick) 254 mg/dL (70-99) 131 mg/dL (70-99) White Blood Count 9.9 x10^3/uL (4.0-11.0) Red Blood Count 2.93 x10^6/uL (3.50-5.40) Hemoglobin 9.0 g/dL (12.0-15.5) Hematocrit 25.5 % (36.0-47.0) Mean Corpuscular Volume 87 fL (79-100) Mean Corpuscular Hemoglobin 31 pg (25-35) Mean Corpuscular Hemoglobin Concent 35 g/dL (31-37) Red Cell Distribution Width 12.8 % (11.5-14.5) Platelet Count 281 x10^3/uL (140-400) Neutrophils (%) (Auto) 64 % (31-73) Lymphocytes (%) (Auto) 27 % (24-48) Monocytes (%) (Auto) 7 % (0-9) Eosinophils (%) (Auto) 2 % (0-3) Basophils (%) (Auto) 0 % (0-3) Neutrophils # (Auto) 6.3 x10^3/uL (1.8-7.7) Lymphocytes # (Auto) 2.6 x10^3/uL (1.0-4.8) Monocytes # (Auto) 0.7 x10^3/uL (0.0-1.1) Eosinophils # (Auto) 0.2 x10^3/uL (0.0-0.7) Basophils # (Auto) 0.0 x10^3/uL (0.0-0.2) Sodium Level 134 mmol/L (136-145) Potassium Level 3.2 mmol/L (3.5-5.1) Chloride Level 97 mmol/L (98-107) Carbon Dioxide Level 27 mmol/L (21-32) Anion Gap 10 (6-14) Blood Urea Nitrogen 12 mg/dL (7-20) Creatinine 1.2 mg/dL (0.6-1.0) Estimated GFR (Cockcroft-Gault) 44.5 BUN/Creatinine Ratio 10 (6-20) Glucose Level 214 mg/dL (70-99) Hemoglobin A1c 8.7 % (4.8-5.6) Calcium Level 8.0 mg/dL (8.5-10.1) Iron Level 60 ug/dL (50-170) Total Iron Binding Capacity 255 ug/dL (250-450) Iron Saturation 24 % (15-34) Total Bilirubin 0.4 mg/dL (0.2-1.0) Aspartate Amino Transf (AST/SGOT) 8 U/L (15-37) Alanine Aminotransferase (ALT/SGPT) 20 U/L (14-59) Alkaline Phosphatase 50 U/L (46-116) Total Protein 5.4 g/dL (6.4-8.2) Albumin 3.0 g/dL (3.4-5.0) Albumin/Globulin Ratio 1.3 (1.0-1.7) Urine Collection Type Unknown Urine Color Green Urine Clarity Clear Urine pH 5.5 (<5.0-8.0) Urine Specific [place] 1.010 (1.000-1.030) Urine Protein Negative mg/dL (NEG-TRACE) Urine Glucose (UA) Negative mg/dL (NEG) Urine Ketones (Stick) Negative mg/dL (NEG) Urine Blood Negative (NEG) Urine Nitrite Negative (NEG) Urine Bilirubin Negative (NEG) Urine Urobilinogen Dipstick 1.0 mg/dL (0.2 mg/dL) Urine Leukocyte Esterase Moderate (NEG) Urine RBC 0 /HPF (0-2) Urine WBC 11-20 /HPF (0-4) Urine Squamous Epithelial Cells Mod /LPF Urine Bacteria Moderate /HPF (0-FEW) Test 01/19/20 21:37 01/20/20 04:30 01/20/20 07:20 Glucose (Fingerstick) 198 mg/dL (70-99) 193 mg/dL (70-99) White Blood Count 8.9 x10^3/uL (4.0-11.0) Red Blood Count 2.76 x10^6/uL (3.50-5.40) Hemoglobin 8.5 g/dL (12.0-15.5) Hematocrit 24.0 % (36.0-47.0) Mean Corpuscular Volume 87 fL (79-100) Mean Corpuscular Hemoglobin 31 pg (25-35) Mean Corpuscular Hemoglobin Concent 35 g/dL (31-37) Red Cell Distribution Width 12.6 % (11.5-14.5) Platelet Count 266 x10^3/uL (140-400) Neutrophils (%) (Auto) 53 % (31-73) Lymphocytes (%) (Auto) 36 % (24-48) Monocytes (%) (Auto) 7 % (0-9) Eosinophils (%) (Auto) 3 % (0-3) Basophils (%) (Auto) 1 % (0-3) Neutrophils # (Auto) 4.7 x10^3/uL (1.8-7.7) Lymphocytes # (Auto) 3.2 x10^3/uL (1.0-4.8) Monocytes # (Auto) 0.7 x10^3/uL (0.0-1.1) Eosinophils # (Auto) 0.3 x10^3/uL (0.0-0.7) Basophils # (Auto) 0.1 x10^3/uL (0.0-0.2) Sodium Level 135 mmol/L (136-145) Potassium Level 3.9 mmol/L (3.5-5.1) Chloride Level 102 mmol/L (98-107) Carbon Dioxide Level 25 mmol/L (21-32) Anion Gap 8 (6-14) Blood Urea Nitrogen 11 mg/dL (7-20) Creatinine 1.0 mg/dL (0.6-1.0) Estimated GFR (Cockcroft-Gault) 55.0 Glucose Level 214 mg/dL (70-99) Calcium Level 8.0 mg/dL (8.5-10.1) Medications Current Medications Ondansetron HCl (Zofran) 4 mg PRN Q6HRS PRN IV NAUSEA/VOMITING Last administered on 01/18/20at 19:46; Start 01/18/20 at 07:00; Stop 01/19/20 at 06:59; Status DC Fentanyl Citrate (Fentanyl 2ml Vial) 25 mcg PRN Q5MIN PRN IV MILD PAIN 1-3 Last administered on 01/18/20at 15:30; Start 01/18/20 at 07:00; Stop 01/19/20 at 06:59; Status DC Fentanyl Citrate (Fentanyl 2ml Vial) 50 mcg PRN Q5MIN PRN IV MODERATE TO SEVERE PAIN Last administered on 01/18/20at 15:00; Start 01/18/20 at 07:00; Stop 01/19/20 at 06:59; Status DC Morphine Sulfate (Morphine Sulfate) 1 mg PRN Q10MIN PRN IV SEVERE PAIN 7-10; Start 01/18/20 at 07:00; Stop 01/19/20 at 06:59; Status DC Ringer's Solution 1,000 ml @ 30 mls/hr Q24H IV Last administered on 01/18/20at 11:07; Start 01/18/20 at 07:00; Stop 01/18/20 at 18:59; Status DC Lidocaine HCl (Xylocaine-Mpf 1% 2ml Vial) 2 ml PRN 1X PRN ID PRIOR TO IV START; Start 01/18/20 at 07:00; Stop 01/19/20 at 06:59; Status DC Hydromorphone HCl (Dilaudid) 0.5 mg PRN Q10MIN PRN IV SEV PAIN, Second choice Last administered on 01/18/20at 19:34; Start 01/18/20 at 07:00; Stop 01/19/20 at 06:59; Status DC Prochlorperazine Edisylate (Compazine) 5 mg PACU PRN PRN IV NAUSEA, MRX1; Start 01/18/20 at 07:00; Stop 01/19/20 at 06:59; Status DC Levofloxacin/ Dextrose 150 ml @ 100 mls/hr 1X PREOP PRN IV PRIOR TO PROCEDURE Last administered on 01/18/20at 12:05; Start 01/18/20 at 06:00; Stop 01/18/20 at 18:00; Status DC Isosulfan Blue (Lymphazurin Blue) 50 mg STK-MED ONCE SQ Last administered on 01/18/20at 12:40; Start 01/18/20 at 10:04; Stop 01/18/20 at 10:04; Status DC Propofol (Diprivan) 200 mg STK-MED ONCE IV ; Start 01/18/20 at 10:26; Stop 01/18/20 at 10:27; Status DC Lidocaine HCl (Lidocaine Pf 2% Vial) 5 ml STK-MED ONCE .ROUTE ; Start 01/18/20 at 10:26; Stop 01/18/20 at 10:27; Status DC Dexamethasone Sodium Phosphate (Decadron) 4 mg STK-MED ONCE .ROUTE ; Start 01/18/20 at 10:27; Stop 01/18/20 at 10:27; Status DC Ondansetron HCl (Zofran) 4 mg STK-MED ONCE .ROUTE ; Start 01/18/20 at 10:27; Stop 01/18/20 at 10:27; Status DC Fentanyl Citrate (Fentanyl 2ml Vial) 100 mcg STK-MED ONCE .ROUTE ; Start 01/18/20 at 10:27; Stop 01/18/20 at 10:27; Status DC Insulin Human Lispro (HumaLOG VIAL for OP,RR ONLY) 0-10 units PRN Q1HR PRN SQ PER PROTOCOL Last administered on 01/18/20at 11:13; Start 01/18/20 at 11:15; Stop 01/19/20 at 11:14; Status DC Fentanyl Citrate (Fentanyl 2ml Vial) 100 mcg STK-MED ONCE .ROUTE ; Start 01/18/20 at 13:05; Stop 01/18/20 at 13:05; Status DC Sevoflurane (Ultane) 60 ml STK-MED ONCE IH ; Start 01/18/20 at 14:00; Stop 01/18/20 at 14:00; Status DC Sodium Chloride (Normal Saline Flush) 3 ml QSHIFT PRN IV AFTER MEDS AND BLOOD DRAWS; Start 01/18/20 at 14:30 Sodium Chloride 1,000 ml @ 80 mls/hr [id number] IV Last administered on 01/18/20at 19:34; Start 01/18/20 at 15:00; Stop 01/19/20 at 14:51; Status DC Acetaminophen/ Hydrocodone Bitart (Lortab 5/325) 1 tab PRN Q4HRS PRN PO MILD PAIN 1-3; Start 01/18/20 at 14:30; Stop 01/19/20 at 14:51; Status DC Acetaminophen/ Hydrocodone Bitart (Lortab 5/325) 2 tab PRN Q4HRS PRN PO MODERATE PAIN, SEVERE PAIN; Start 01/18/20 at 14:30; Stop 01/19/20 at 14:51; Status DC Naloxone HCl (Narcan) 0.4 mg PRN Q2MIN PRN IV SEE INSTRUCTIONS; Start 01/18/20 at 14:30 Sodium Chloride 1,000 ml @ 25 mls/hr Q24H IV ; Start 01/18/20 at 14:24; Stop 01/19/20 at 14:51; Status DC Hydromorphone HCl (Dilaudid) 0.2 mg PRN Q1HR PRN IV PAIN; Start 01/18/20 at 14:30 Ondansetron HCl (Zofran) 4 mg PRN Q6HRS PRN IVP NAUESA, 1ST CHOICE; Start 01/18/20 at 14:30 Prochlorperazine Edisylate (Compazine) 5 mg PRN Q6HRS PRN IV N/V, 2nd Choice, MR X1; Start 01/18/20 at 14:30 Atorvastatin Calcium (Lipitor) 40 mg QHS PO Last administered on 01/19/20at 21:05; Start 01/18/20 at 21:00 Lisinopril (Prinivil) 40 mg DAILY PO ; Start 01/19/20 at 09:00 Metformin HCl (Glucophage) 500 mg BIDWMEALS PO Last administered on 01/19/20at 17:24; Start 01/18/20 at 17:00; Stop 01/20/20 at 07:31; Status DC Glipizide (Glucotrol) 20 mg DAILYWBKFT PO Last administered on 01/19/20at 08:07; Start 01/19/20 at 08:00 Linagliptin (Tradjenta) 5 mg DAILY PO Last administered on 01/19/20at 08:08; Start 01/19/20 at 09:00 Fentanyl Citrate (Fentanyl 2ml Vial) 100 mcg STK-MED ONCE .ROUTE ; Start 01/18/20 at 14:39; Stop 01/18/20 at 14:39; Status DC Oxycodone/ Acetaminophen (Percocet 5/325) 1 tab PRN Q4HRS PRN PO PAIN Last administered on 01/19/20at 17:25; Start 01/18/20 at 19:30 Insulin Human Lispro (HumaLOG) 0-5 UNITS TIDWMEALS SQ Last administered on 01/19/20at 12:54; Start 01/19/20 at 12:30 Dextrose (Dextrose 50%-Water Syringe) 12.5 gm PRN Q15MIN PRN IV SEE COMMENTS; Start 01/19/20 at 12:30 Potassium Chloride (Klor-Con) 40 meq 1X ONCE PO Last administered on 01/19/20at 17:28; Start 01/19/20 at 17:00; Stop 01/19/20 at 17:01; Status DC Potassium Chloride (Klor-Con) 20 meq DAILYWBKFT PO ; Start 01/20/20 at 08:00 Sodium Chloride 1,000 ml @ 75 mls/hr [id number] IV Last administered on 01/20/20at 06:18; Start 01/19/20 at 17:00 Metformin HCl (Glucophage) 1,000 mg BIDWMEALS PO ; Start 01/20/20 at 07:30 Active Scripts Active Reported Januvia (Sitagliptin Phosphate) 100 Mg Tablet 100 Mg PO DAILY Atorvastatin Calcium 40 Mg Tablet 40 Mg PO DAILY Lisinopril 40 Mg Tablet 40 Mg PO DAILY Glipizide 10 Mg Tablet 20 Mg PO DAILY Metformin Hcl 500 Mg Tablet 500 Mg PO BIDWMEALS Vitals/I & O Vital Sign - Last 24 Hours 01/19/20 01/19/20 01/19/20 01/19/20 11:00 12:50 13:54 14:56 Temp 97.8 99.3 97.8 99.3 Pulse 96 81 Resp 18 20 B/P (MAP) 135/56 (82) 124/39 (67) Pulse Ox 95 96 O2 Delivery Room Air Room Air Room Air Room Air 01/19/20 01/19/20 01/19/20 01/19/20 17:25 18:25 19:00 20:00 Temp 98.1 98.1 Pulse 111 Resp 18 B/P (MAP) 147/69 (95) Pulse Ox 94 O2 Delivery Room Air Room Air Room Air Room Air 01/19/20 01/20/20 01/20/20 23:00 03:00 07:15 Temp 98.3 98.4 97.9 98.3 98.4 97.9 Pulse 100 73 101 Resp 18 18 20 B/P (MAP) 121/45 (70) 150/61 (90) 117/56 (76) Pulse Ox 94 93 98 O2 Delivery Room Air Room Air Room Air Intake and Output 01/19/20 01/19/20 01/20/20 15:00 23:00 07:00 Intake Total 490 ml 200 ml Output Total 530 ml 140 ml Balance -530 ml 490 ml 60 ml KARLA PEREZ MD Jan 20, 2020 08:46
[2020-01-20] MEDS: glipiZIDE 5 MG TABLET PO SCH (08:48)
[2020-01-20] MEDS: LISINOPRIL 20 MG TABLET PO SCH (08:48)
[2020-01-20] MEDS: LINAGLIPTIN 5 MG TABLET PO SCH (08:48)
[2020-01-20] MEDS: INSULIN LISPRO 300 UNITS/3 ML VIAL. SQ SCH ×2 (08:59→12:40)
[2020-01-20] MEDS ORDERED: INSULIN GLARGINE SYRINGE. SQ ONE (09:00)
[2020-01-20 11:06] VITALS: BP 118/62
[2020-01-20] MEDS ORDERED: INSU100I13 SQ (12:22)
[2020-01-20] MEDS: oxyCODONE/APAP 5/325 1 TAB TABLET PO PRN (12:36)
--- NOTE | 2020-01-20 13:29 | PDOC ---
PROGRESS NOTES Subjective Subjective tired Objective Objective Vital Signs Date Time Temp Pulse Resp B/P (MAP) Pulse Ox O2 Delivery O2 Flow Rate FiO2 01/20/20 12:36 Room Air 01/20/20 11:06 98.0 105 20 118/62 (80) 97 98.0 01/18/20 15:30 2.0 Intake and Output 01/20/20 07:00 Intake Total 690 ml Output Total 670 ml Balance 20 ml Intake Oral 690 ml Output Urine Total 500 ml Drainage Total 170 ml # Voids 1 Physical Exam Physical Exam dressing intact, some bruising; BRENDON with sanguinous output Assessment Assessment POD 2 Plan Plan of Care Discharge, discussed with Medicine regarding home diabetes mgmt. Comment Review of Relevant I have reviewed the following items elodia (where applicable) has been applied. Labs Laboratory Tests Test 01/18/20 14:48 01/18/20 21:10 01/19/20 07:11 01/19/20 10:48 Glucose (Fingerstick) 152 mg/dL (70-99) 281 mg/dL (70-99) 254 mg/dL (70-99) 254 mg/dL (70-99) Test 01/19/20 13:40 01/19/20 14:45 01/19/20 16:44 01/19/20 21:37 White Blood Count 9.9 x10^3/uL (4.0-11.0) Red Blood Count 2.93 x10^6/uL (3.50-5.40) Hemoglobin 9.0 g/dL (12.0-15.5) Hematocrit 25.5 % (36.0-47.0) Mean Corpuscular Volume 87 fL (79-100) Mean Corpuscular Hemoglobin 31 pg (25-35) Mean Corpuscular Hemoglobin Concent 35 g/dL (31-37) Red Cell Distribution Width 12.8 % (11.5-14.5) Platelet Count 281 x10^3/uL (140-400) Neutrophils (%) (Auto) 64 % (31-73) Lymphocytes (%) (Auto) 27 % (24-48) Monocytes (%) (Auto) 7 % (0-9) Eosinophils (%) (Auto) 2 % (0-3) Basophils (%) (Auto) 0 % (0-3) Neutrophils # (Auto) 6.3 x10^3/uL (1.8-7.7) Lymphocytes # (Auto) 2.6 x10^3/uL (1.0-4.8) Monocytes # (Auto) 0.7 x10^3/uL (0.0-1.1) Eosinophils # (Auto) 0.2 x10^3/uL (0.0-0.7) Basophils # (Auto) 0.0 x10^3/uL (0.0-0.2) Sodium Level 134 mmol/L (136-145) Potassium Level 3.2 mmol/L (3.5-5.1) Chloride Level 97 mmol/L (98-107) Carbon Dioxide Level 27 mmol/L (21-32) Anion Gap 10 (6-14) Blood Urea Nitrogen 12 mg/dL (7-20) Creatinine 1.2 mg/dL (0.6-1.0) Estimated GFR (Cockcroft-Gault) 44.5 BUN/Creatinine Ratio 10 (6-20) Glucose Level 214 mg/dL (70-99) Hemoglobin A1c 8.7 % (4.8-5.6) Calcium Level 8.0 mg/dL (8.5-10.1) Iron Level 60 ug/dL (50-170) Total Iron Binding Capacity 255 ug/dL (250-450) Iron Saturation 24 % (15-34) Total Bilirubin 0.4 mg/dL (0.2-1.0) Aspartate Amino Transf (AST/SGOT) 8 U/L (15-37) Alanine Aminotransferase (ALT/SGPT) 20 U/L (14-59) Alkaline Phosphatase 50 U/L (46-116) Total Protein 5.4 g/dL (6.4-8.2) Albumin 3.0 g/dL (3.4-5.0) Albumin/Globulin Ratio 1.3 (1.0-1.7) Urine Collection Type Unknown Urine Color Green Urine Clarity Clear Urine pH 5.5 (<5.0-8.0) Urine Specific [place] 1.010 (1.000-1.030) Urine Protein Negative mg/dL (NEG-TRACE) Urine Glucose (UA) Negative mg/dL (NEG) Urine Ketones (Stick) Negative mg/dL (NEG) Urine Blood Negative (NEG) Urine Nitrite Negative (NEG) Urine Bilirubin Negative (NEG) Urine Urobilinogen Dipstick 1.0 mg/dL (0.2 mg/dL) Urine Leukocyte Esterase Moderate (NEG) Urine RBC 0 /HPF (0-2) Urine WBC 11-20 /HPF (0-4) Urine Squamous Epithelial Cells Mod /LPF Urine Bacteria Moderate /HPF (0-FEW) Glucose (Fingerstick) 131 mg/dL (70-99) 198 mg/dL (70-99) Test 01/20/20 04:30 01/20/20 07:20 01/20/20 11:06 White Blood Count 8.9 x10^3/uL (4.0-11.0) Red Blood Count 2.76 x10^6/uL (3.50-5.40) Hemoglobin 8.5 g/dL (12.0-15.5) Hematocrit 24.0 % (36.0-47.0) Mean Corpuscular Volume 87 fL (79-100) Mean Corpuscular Hemoglobin 31 pg (25-35) Mean Corpuscular Hemoglobin Concent 35 g/dL (31-37) Red Cell Distribution Width 12.6 % (11.5-14.5) Platelet Count 266 x10^3/uL (140-400) Neutrophils (%) (Auto) 53 % (31-73) Lymphocytes (%) (Auto) 36 % (24-48) Monocytes (%) (Auto) 7 % (0-9) Eosinophils (%) (Auto) 3 % (0-3) Basophils (%) (Auto) 1 % (0-3) Neutrophils # (Auto) 4.7 x10^3/uL (1.8-7.7) Lymphocytes # (Auto) 3.2 x10^3/uL (1.0-4.8) Monocytes # (Auto) 0.7 x10^3/uL (0.0-1.1) Eosinophils # (Auto) 0.3 x10^3/uL (0.0-0.7) Basophils # (Auto) 0.1 x10^3/uL (0.0-0.2) Sodium Level 135 mmol/L (136-145) Potassium Level 3.9 mmol/L (3.5-5.1) Chloride Level 102 mmol/L (98-107) Carbon Dioxide Level 25 mmol/L (21-32) Anion Gap 8 (6-14) Blood Urea Nitrogen 11 mg/dL (7-20) Creatinine 1.0 mg/dL (0.6-1.0) Estimated GFR (Cockcroft-Gault) 55.0 Glucose Level 214 mg/dL (70-99) Calcium Level 8.0 mg/dL (8.5-10.1) Glucose (Fingerstick) 193 mg/dL (70-99) 196 mg/dL (70-99) Laboratory Tests Test 01/19/20 13:40 01/19/20 14:45 01/19/20 16:44 01/19/20 21:37 White Blood Count 9.9 x10^3/uL (4.0-11.0) Red Blood Count 2.93 x10^6/uL (3.50-5.40) Hemoglobin 9.0 g/dL (12.0-15.5) Hematocrit 25.5 % (36.0-47.0) Mean Corpuscular Volume 87 fL (79-100) Mean Corpuscular Hemoglobin 31 pg (25-35) Mean Corpuscular Hemoglobin Concent 35 g/dL (31-37) Red Cell Distribution Width 12.8 % (11.5-14.5) Platelet Count 281 x10^3/uL (140-400) Neutrophils (%) (Auto) 64 % (31-73) Lymphocytes (%) (Auto) 27 % (24-48) Monocytes (%) (Auto) 7 % (0-9) Eosinophils (%) (Auto) 2 % (0-3) Basophils (%) (Auto) 0 % (0-3) Neutrophils # (Auto) 6.3 x10^3/uL (1.8-7.7) Lymphocytes # (Auto) 2.6 x10^3/uL (1.0-4.8) Monocytes # (Auto) 0.7 x10^3/uL (0.0-1.1) Eosinophils # (Auto) 0.2 x10^3/uL (0.0-0.7) Basophils # (Auto) 0.0 x10^3/uL (0.0-0.2) Sodium Level 134 mmol/L (136-145) Potassium Level 3.2 mmol/L (3.5-5.1) Chloride Level 97 mmol/L (98-107) Carbon Dioxide Level 27 mmol/L (21-32) Anion Gap 10 (6-14) Blood Urea Nitrogen 12 mg/dL (7-20) Creatinine 1.2 mg/dL (0.6-1.0) Estimated GFR (Cockcroft-Gault) 44.5 BUN/Creatinine Ratio 10 (6-20) Glucose Level 214 mg/dL (70-99) Hemoglobin A1c 8.7 % (4.8-5.6) Calcium Level 8.0 mg/dL (8.5-10.1) Iron Level 60 ug/dL (50-170) Total Iron Binding Capacity 255 ug/dL (250-450) Iron Saturation 24 % (15-34) Total Bilirubin 0.4 mg/dL (0.2-1.0) Aspartate Amino Transf (AST/SGOT) 8 U/L (15-37) Alanine Aminotransferase (ALT/SGPT) 20 U/L (14-59) Alkaline Phosphatase 50 U/L (46-116) Total Protein 5.4 g/dL (6.4-8.2) Albumin 3.0 g/dL (3.4-5.0) Albumin/Globulin Ratio 1.3 (1.0-1.7) Urine Collection Type Unknown Urine Color Green Urine Clarity Clear Urine pH 5.5 (<5.0-8.0) Urine Specific [place] 1.010 (1.000-1.030) Urine Protein Negative mg/dL (NEG-TRACE) Urine Glucose (UA) Negative mg/dL (NEG) Urine Ketones (Stick) Negative mg/dL (NEG) Urine Blood Negative (NEG) Urine Nitrite Negative (NEG) Urine Bilirubin Negative (NEG) Urine Urobilinogen Dipstick 1.0 mg/dL (0.2 mg/dL) Urine Leukocyte Esterase Moderate (NEG) Urine RBC 0 /HPF (0-2) Urine WBC 11-20 /HPF (0-4) Urine Squamous Epithelial Cells Mod /LPF Urine Bacteria Moderate /HPF (0-FEW) Glucose (Fingerstick) 131 mg/dL (70-99) 198 mg/dL (70-99) Test 01/20/20 04:30 01/20/20 07:20 01/20/20 11:06 White Blood Count 8.9 x10^3/uL (4.0-11.0) Red Blood Count 2.76 x10^6/uL (3.50-5.40) Hemoglobin 8.5 g/dL (12.0-15.5) Hematocrit 24.0 % (36.0-47.0) Mean Corpuscular Volume 87 fL (79-100) Mean Corpuscular Hemoglobin 31 pg (25-35) Mean Corpuscular Hemoglobin Concent 35 g/dL (31-37) Red Cell Distribution Width 12.6 % (11.5-14.5) Platelet Count 266 x10^3/uL (140-400) Neutrophils (%) (Auto) 53 % (31-73) Lymphocytes (%) (Auto) 36 % (24-48) Monocytes (%) (Auto) 7 % (0-9) Eosinophils (%) (Auto) 3 % (0-3) Basophils (%) (Auto) 1 % (0-3) Neutrophils # (Auto) 4.7 x10^3/uL (1.8-7.7) Lymphocytes # (Auto) 3.2 x10^3/uL (1.0-4.8) Monocytes # (Auto) 0.7 x10^3/uL (0.0-1.1) Eosinophils # (Auto) 0.3 x10^3/uL (0.0-0.7) Basophils # (Auto) 0.1 x10^3/uL (0.0-0.2) Sodium Level 135 mmol/L (136-145) Potassium Level 3.9 mmol/L (3.5-5.1) Chloride Level 102 mmol/L (98-107) Carbon Dioxide Level 25 mmol/L (21-32) Anion Gap 8 (6-14) Blood Urea Nitrogen 11 mg/dL (7-20) Creatinine 1.0 mg/dL (0.6-1.0) Estimated GFR (Cockcroft-Gault) 55.0 Glucose Level 214 mg/dL (70-99) Calcium Level 8.0 mg/dL (8.5-10.1) Glucose (Fingerstick) 193 mg/dL (70-99) 196 mg/dL (70-99) Medications Current Medications Ondansetron HCl (Zofran) 4 mg PRN Q6HRS PRN IV NAUSEA/VOMITING Last administered on 01/18/20at 19:46; Start 01/18/20 at 07:00; Stop 01/19/20 at 06:59; Status DC Fentanyl Citrate (Fentanyl 2ml Vial) 25 mcg PRN Q5MIN PRN IV MILD PAIN 1-3 Last administered on 01/18/20at 15:30; Start 01/18/20 at 07:00; Stop 01/19/20 at 06:59; Status DC Fentanyl Citrate (Fentanyl 2ml Vial) 50 mcg PRN Q5MIN PRN IV MODERATE TO SEVERE PAIN Last administered on 01/18/20at 15:00; Start 01/18/20 at 07:00; Stop 01/19/20 at 06:59; Status DC Morphine Sulfate (Morphine Sulfate) 1 mg PRN Q10MIN PRN IV SEVERE PAIN 7-10; Start 01/18/20 at 07:00; Stop 01/19/20 at 06:59; Status DC Ringer's Solution 1,000 ml @ 30 mls/hr Q24H IV Last administered on 01/18/20at 11:07; Start 01/18/20 at 07:00; Stop 01/18/20 at 18:59; Status DC Lidocaine HCl (Xylocaine-Mpf 1% 2ml Vial) 2 ml PRN 1X PRN ID PRIOR TO IV START; Start 01/18/20 at 07:00; Stop 01/19/20 at 06:59; Status DC Hydromorphone HCl (Dilaudid) 0.5 mg PRN Q10MIN PRN IV SEV PAIN, Second choice Last administered on 01/18/20at 19:34; Start 01/18/20 at 07:00; Stop 01/19/20 at 06:59; Status DC Prochlorperazine Edisylate (Compazine) 5 mg PACU PRN PRN IV NAUSEA, MRX1; Start 01/18/20 at 07:00; Stop 01/19/20 at 06:59; Status DC Levofloxacin/ Dextrose 150 ml @ 100 mls/hr 1X PREOP PRN IV PRIOR TO PROCEDURE Last administered on 01/18/20at 12:05; Start 01/18/20 at 06:00; Stop 01/18/20 at 18:00; Status DC Isosulfan Blue (Lymphazurin Blue) 50 mg STK-MED ONCE SQ Last administered on 01/18/20at 12:40; Start 01/18/20 at 10:04; Stop 01/18/20 at 10:04; Status DC Propofol (Diprivan) 200 mg STK-MED ONCE IV ; Start 01/18/20 at 10:26; Stop 01/18/20 at 10:27; Status DC Lidocaine HCl (Lidocaine Pf 2% Vial) 5 ml STK-MED ONCE .ROUTE ; Start 01/18/20 at 10:26; Stop 01/18/20 at 10:27; Status DC Dexamethasone Sodium Phosphate (Decadron) 4 mg STK-MED ONCE .ROUTE ; Start 01/18/20 at 10:27; Stop 01/18/20 at 10:27; Status DC Ondansetron HCl (Zofran) 4 mg STK-MED ONCE .ROUTE ; Start 01/18/20 at 10:27; Stop 01/18/20 at 10:27; Status DC Fentanyl Citrate (Fentanyl 2ml Vial) 100 mcg STK-MED ONCE .ROUTE ; Start 01/18/20 at 10:27; Stop 01/18/20 at 10:27; Status DC Insulin Human Lispro (HumaLOG VIAL for OP,RR ONLY) 0-10 units PRN Q1HR PRN SQ PER PROTOCOL Last administered on 01/18/20at 11:13; Start 01/18/20 at 11:15; Stop 01/19/20 at 11:14; Status DC Fentanyl Citrate (Fentanyl 2ml Vial) 100 mcg STK-MED ONCE .ROUTE ; Start 01/18/20 at 13:05; Stop 01/18/20 at 13:05; Status DC Sevoflurane (Ultane) 60 ml STK-MED ONCE IH ; Start 01/18/20 at 14:00; Stop 01/18/20 at 14:00; Status DC Sodium Chloride (Normal Saline Flush) 3 ml QSHIFT PRN IV AFTER MEDS AND BLOOD DRAWS; Start 01/18/20 at 14:30 Sodium Chloride 1,000 ml @ 80 mls/hr [id number] IV Last administered on 01/18/20at 19:34; Start 01/18/20 at 15:00; Stop 01/19/20 at 14:51; Status DC Acetaminophen/ Hydrocodone Bitart (Lortab 5/325) 1 tab PRN Q4HRS PRN PO MILD PAIN 1-3; Start 01/18/20 at 14:30; Stop 01/19/20 at 14:51; Status DC Acetaminophen/ Hydrocodone Bitart (Lortab 5/325) 2 tab PRN Q4HRS PRN PO MODERATE PAIN, SEVERE PAIN; Start 01/18/20 at 14:30; Stop 01/19/20 at 14:51; Status DC Naloxone HCl (Narcan) 0.4 mg PRN Q2MIN PRN IV SEE INSTRUCTIONS; Start 01/18/20 at 14:30 Sodium Chloride 1,000 ml @ 25 mls/hr Q24H IV ; Start 01/18/20 at 14:24; Stop 01/19/20 at 14:51; Status DC Hydromorphone HCl (Dilaudid) 0.2 mg PRN Q1HR PRN IV PAIN; Start 01/18/20 at 14:30 Ondansetron HCl (Zofran) 4 mg PRN Q6HRS PRN IVP NAUESA, 1ST CHOICE; Start 01/18/20 at 14:30 Prochlorperazine Edisylate (Compazine) 5 mg PRN Q6HRS PRN IV N/V, 2nd Choice, M R X1; Start 01/18/20 at 14:30 Atorvastatin Calcium (Lipitor) 40 mg QHS PO Last administered on 01/19/20at 21:05; Start 01/18/20 at 21:00 Lisinopril (Prinivil) 40 mg DAILY PO Last administered on 01/20/20at 08:48; Start 01/19/20 at 09:00 Metformin HCl (Glucophage) 500 mg BIDWMEALS PO Last administered on 01/19/20at 17:24; Start 01/18/20 at 17:00; Stop 01/20/20 at 07:31; Status DC Glipizide (Glucotrol) 20 mg DAILYWBKFT PO Last administered on 01/20/20at 08:48; Start 01/19/20 at 08:00 Linagliptin (Tradjenta) 5 mg DAILY PO Last administered on 01/20/20at 08:48; Start 01/19/20 at 09:00 Fentanyl Citrate (Fentanyl 2ml Vial) 100 mcg STK-MED ONCE .ROUTE ; Start 01/18/20 at 14:39; Stop 01/18/20 at 14:39; Status DC Oxycodone/ Acetaminophen (Percocet 5/325) 1 tab PRN Q4HRS PRN PO PAIN Last administered on 01/20/20at 12:36; Start 01/18/20 at 19:30 Insulin Human Lispro (HumaLOG) 0-5 UNITS TIDWMEALS SQ Last administered on 01/20/20at 12:40; Start 01/19/20 at 12:30 Dextrose (Dextrose 50%-Water Syringe) 12.5 gm PRN Q15MIN PRN IV SEE COMMENTS; Start 01/19/20 at 12:30 Potassium Chloride (Klor-Con) 40 meq 1X ONCE PO Last administered on 01/19/20at 17:28; Start 01/19/20 at 17:00; Stop 01/19/20 at 17:01; Status DC Potassium Chloride (Klor-Con) 20 meq DAILYWBKFT PO Last administered on 01/20/20at 08:47; Start 01/20/20 at 08:00 Sodium Chloride 1,000 ml @ 75 mls/hr [id number] IV Last administered on 01/20/20at 06:18; Start 01/19/20 at 17:00 Metformin HCl (Glucophage) 1,000 mg BIDWMEALS PO Last administered on 01/20/20at 08:47; Start 01/20/20 at 07:30 Insulin Glargine (Lantus Syringe) 10 unit 1X ONCE SQ Last administered on 01/20/20at 09:00; Start 01/20/20 at 09:00; Stop 01/20/20 at 09:01; Status DC Active Scripts Active Lantus Solostar (Insulin Glargine,Hum.rec.anlog) 100 Unit/1 Ml Insuln.pen 10 Unit SQ QHS 30 Days Reported Januvia (Sitagliptin Phosphate) 100 Mg Tablet 100 Mg PO DAILY Atorvastatin Calcium 40 Mg Tablet 40 Mg PO DAILY Lisinopril 40 Mg Tablet 40 Mg PO DAILY Glipizide 10 Mg Tablet 20 Mg PO DAILY Metformin Hcl 500 Mg Tablet 500 Mg PO BIDWMEALS Vitals/I & O Vital Sign - Last 24 Hours 01/19/20 01/19/20 01/19/20 01/19/20 13:54 14:56 17:25 18:25 Temp 99.3 99.3 Pulse 81 Resp 20 B/P (MAP) 124/39 (67) Pulse Ox 96 O2 Delivery Room Air Room Air Room Air Room Air 01/19/20 01/19/20 01/19/20 01/20/20 19:00 20:00 23:00 03:00 Temp 98.1 98.3 98.4 98.1 98.3 98.4 Pulse 111 100 73 Resp 18 18 18 B/P (MAP) 147/69 (95) 121/45 (70) 150/61 (90) Pulse Ox 94 94 93 O2 Delivery Room Air Room Air Room Air Room Air 01/20/20 01/20/20 01/20/20 01/20/20 07:15 08:00 08:48 11:06 Temp 97.9 98.0 97.9 98.0 Pulse 101 101 105 Resp 20 20 B/P (MAP) 117/56 (76) 117/56 118/62 (80) Pulse Ox 98 97 O2 Delivery Room Air Room Air Room Air 01/20/20 12:36 O2 Delivery Room Air Intake and Output 01/19/20 01/19/20 01/20/20 15:00 23:00 07:00 Intake Total 490 ml 200 ml Output Total 530 ml 140 ml Balance -530 ml 490 ml 60 ml GUIDO TENORIO MD Jan 20, 2020 13:29
--- NOTE | 2020-01-20 13:31 | DISCH ---
DISCHARGE INSTRUCTIONS Condition on Discharge Condition on Discharge: Stable Activity After Discharge Activity Instructions for Disc: Other, see below (no strenuous activity) Driving Instructions after Dis: Other, see below (No driving while taking pain meds) Wound Incision Care Wound/Incision Care: Other, see below (Home BRENDON instructions; at home measure drain output BID) Follow-Up Follow up with: Dr Tenorio in office in 1 week, call for appt [phone] GUIDO TENORIO MD Jan 20, 2020 13:31
--- NOTE | 2020-01-20 13:33 | PDOC3 ---
Discharge Summary Visit Information Date of Admission: Jan 18, 2020 Date of Discharge: Jan 20, 2020 Admitting Diagnosis: Right breast cancer Final Diagnosis R breast cancer Brief Hospital Course Allergies Allergies Coded Allergies Type Severity Reaction Last Updated Verified Penicillins Allergy Intermediate 01/17/20 Yes aspirin Allergy Intermediate 01/17/20 Yes hydrocodone Allergy Mild 01/18/20 Yes Vital Signs Vital Signs Date Time Temp Pulse Resp B/P (MAP) Pulse Ox O2 Delivery O2 Flow Rate FiO2 01/20/20 12:36 Room Air 01/20/20 11:06 98.0 105 20 118/62 (80) 97 98.0 Lab Results Laboratory Tests Test 01/18/20 14:48 01/18/20 21:10 01/19/20 07:11 01/19/20 10:48 Glucose (Fingerstick) 152 mg/dL (70-99) 281 mg/dL (70-99) 254 mg/dL (70-99) 254 mg/dL (70-99) Test 01/19/20 13:40 01/19/20 14:45 01/19/20 16:44 01/19/20 21:37 White Blood Count 9.9 x10^3/uL (4.0-11.0) Red Blood Count 2.93 x10^6/uL (3.50-5.40) Hemoglobin 9.0 g/dL (12.0-15.5) Hematocrit 25.5 % (36.0-47.0) Mean Corpuscular Volume 87 fL (79-100) Mean Corpuscular Hemoglobin 31 pg (25-35) Mean Corpuscular Hemoglobin Concent 35 g/dL (31-37) Red Cell Distribution Width 12.8 % (11.5-14.5) Platelet Count 281 x10^3/uL (140-400) Neutrophils (%) (Auto) 64 % (31-73) Lymphocytes (%) (Auto) 27 % (24-48) Monocytes (%) (Auto) 7 % (0-9) Eosinophils (%) (Auto) 2 % (0-3) Basophils (%) (Auto) 0 % (0-3) Neutrophils # (Auto) 6.3 x10^3/uL (1.8-7.7) Lymphocytes # (Auto) 2.6 x10^3/uL (1.0-4.8) Monocytes # (Auto) 0.7 x10^3/uL (0.0-1.1) Eosinophils # (Auto) 0.2 x10^3/uL (0.0-0.7) Basophils # (Auto) 0.0 x10^3/uL (0.0-0.2) Sodium Level 134 mmol/L (136-145) Potassium Level 3.2 mmol/L (3.5-5.1) Chloride Level 97 mmol/L (98-107) Carbon Dioxide Level 27 mmol/L (21-32) Anion Gap 10 (6-14) Blood Urea Nitrogen 12 mg/dL (7-20) Creatinine 1.2 mg/dL (0.6-1.0) Estimated GFR (Cockcroft-Gault) 44.5 BUN/Creatinine Ratio 10 (6-20) Glucose Level 214 mg/dL (70-99) Hemoglobin A1c 8.7 % (4.8-5.6) Calcium Level 8.0 mg/dL (8.5-10.1) Iron Level 60 ug/dL (50-170) Total Iron Binding Capacity 255 ug/dL (250-450) Iron Saturation 24 % (15-34) Total Bilirubin 0.4 mg/dL (0.2-1.0) Aspartate Amino Transf (AST/SGOT) 8 U/L (15-37) Alanine Aminotransferase (ALT/SGPT) 20 U/L (14-59) Alkaline Phosphatase 50 U/L (46-116) Total Protein 5.4 g/dL (6.4-8.2) Albumin 3.0 g/dL (3.4-5.0) Albumin/Globulin Ratio 1.3 (1.0-1.7) Urine Collection Type Unknown Urine Color Green Urine Clarity Clear Urine pH 5.5 (<5.0-8.0) Urine Specific [place] 1.010 (1.000-1.030) Urine Protein Negative mg/dL (NEG-TRACE) Urine Glucose (UA) Negative mg/dL (NEG) Urine Ketones (Stick) Negative mg/dL (NEG) Urine Blood Negative (NEG) Urine Nitrite Negative (NEG) Urine Bilirubin Negative (NEG) Urine Urobilinogen Dipstick 1.0 mg/dL (0.2 mg/dL) Urine Leukocyte Esterase Moderate (NEG) Urine RBC 0 /HPF (0-2) Urine WBC 11-20 /HPF (0-4) Urine Squamous Epithelial Cells Mod /LPF Urine Bacteria Moderate /HPF (0-FEW) Glucose (Fingerstick) 131 mg/dL (70-99) 198 mg/dL (70-99) Test 01/20/20 04:30 01/20/20 07:20 01/20/20 11:06 White Blood Count 8.9 x10^3/uL (4.0-11.0) Red Blood Count 2.76 x10^6/uL (3.50-5.40) Hemoglobin 8.5 g/dL (12.0-15.5) Hematocrit 24.0 % (36.0-47.0) Mean Corpuscular Volume 87 fL (79-100) Mean Corpuscular Hemoglobin 31 pg (25-35) Mean Corpuscular Hemoglobin Concent 35 g/dL (31-37) Red Cell Distribution Width 12.6 % (11.5-14.5) Platelet Count 266 x10^3/uL (140-400) Neutrophils (%) (Auto) 53 % (31-73) Lymphocytes (%) (Auto) 36 % (24-48) Monocytes (%) (Auto) 7 % (0-9) Eosinophils (%) (Auto) 3 % (0-3) Basophils (%) (Auto) 1 % (0-3) Neutrophils # (Auto) 4.7 x10^3/uL (1.8-7.7) Lymphocytes # (Auto) 3.2 x10^3/uL (1.0-4.8) Monocytes # (Auto) 0.7 x10^3/uL (0.0-1.1) Eosinophils # (Auto) 0.3 x10^3/uL (0.0-0.7) Basophils # (Auto) 0.1 x10^3/uL (0.0-0.2) Sodium Level 135 mmol/L (136-145) Potassium Level 3.9 mmol/L (3.5-5.1) Chloride Level 102 mmol/L (98-107) Carbon Dioxide Level 25 mmol/L (21-32) Anion Gap 8 (6-14) Blood Urea Nitrogen 11 mg/dL (7-20) Creatinine 1.0 mg/dL (0.6-1.0) Estimated GFR (Cockcroft-Gault) 55.0 Glucose Level 214 mg/dL (70-99) Calcium Level 8.0 mg/dL (8.5-10.1) Glucose (Fingerstick) 193 mg/dL (70-99) 196 mg/dL (70-99) Laboratory Tests Test 01/19/20 13:40 01/19/20 14:45 01/19/20 16:44 01/19/20 21:37 White Blood Count 9.9 x10^3/uL (4.0-11.0) Red Blood Count 2.93 x10^6/uL (3.50-5.40) Hemoglobin 9.0 g/dL (12.0-15.5) Hematocrit 25.5 % (36.0-47.0) Mean Corpuscular Volume 87 fL (79-100) Mean Corpuscular Hemoglobin 31 pg (25-35) Mean Corpuscular Hemoglobin Concent 35 g/dL (31-37) Red Cell Distribution Width 12.8 % (11.5-14.5) Platelet Count 281 x10^3/uL (140-400) Neutrophils (%) (Auto) 64 % (31-73) Lymphocytes (%) (Auto) 27 % (24-48) Monocytes (%) (Auto) 7 % (0-9) Eosinophils (%) (Auto) 2 % (0-3) Basophils (%) (Auto) 0 % (0-3) Neutrophils # (Auto) 6.3 x10^3/uL (1.8-7.7) Lymphocytes # (Auto) 2.6 x10^3/uL (1.0-4.8) Monocytes # (Auto) 0.7 x10^3/uL (0.0-1.1) Eosinophils # (Auto) 0.2 x10^3/uL (0.0-0.7) Basophils # (Auto) 0.0 x10^3/uL (0.0-0.2) Sodium Level 134 mmol/L (136-145) Potassium Level 3.2 mmol/L (3.5-5.1) Chloride Level 97 mmol/L (98-107) Carbon Dioxide Level 27 mmol/L (21-32) Anion Gap 10 (6-14) Blood Urea Nitrogen 12 mg/dL (7-20) Creatinine 1.2 mg/dL (0.6-1.0) Estimated GFR (Cockcroft-Gault) 44.5 BUN/Creatinine Ratio 10 (6-20) Glucose Level 214 mg/dL (70-99) Hemoglobin A1c 8.7 % (4.8-5.6) Calcium Level 8.0 mg/dL (8.5-10.1) Iron Level 60 ug/dL (50-170) Total Iron Binding Capacity 255 ug/dL (250-450) Iron Saturation 24 % (15-34) Total Bilirubin 0.4 mg/dL (0.2-1.0) Aspartate Amino Transf (AST/SGOT) 8 U/L (15-37) Alanine Aminotransferase (ALT/SGPT) 20 U/L (14-59) Alkaline Phosphatase 50 U/L (46-116) Total Protein 5.4 g/dL (6.4-8.2) Albumin 3.0 g/dL (3.4-5.0) Albumin/Globulin Ratio 1.3 (1.0-1.7) Urine Collection Type Unknown Urine Color Green Urine Clarity Clear Urine pH 5.5 (<5.0-8.0) Urine Specific [place] 1.010 (1.000-1.030) Urine Protein Negative mg/dL (NEG-TRACE) Urine Glucose (UA) Negative mg/dL (NEG) Urine Ketones (Stick) Negative mg/dL (NEG) Urine Blood Negative (NEG) Urine Nitrite Negative (NEG) Urine Bilirubin Negative (NEG) Urine Urobilinogen Dipstick 1.0 mg/dL (0.2 mg/dL) Urine Leukocyte Esterase Moderate (NEG) Urine RBC 0 /HPF (0-2) Urine WBC 11-20 /HPF (0-4) Urine Squamous Epithelial Cells Mod /LPF Urine Bacteria Moderate /HPF (0-FEW) Glucose (Fingerstick) 131 mg/dL (70-99) 198 mg/dL (70-99) Test 01/20/20 04:30 01/20/20 07:20 01/20/20 11:06 White Blood Count 8.9 x10^3/uL (4.0-11.0) Red Blood Count 2.76 x10^6/uL (3.50-5.40) Hemoglobin 8.5 g/dL (12.0-15.5) Hematocrit 24.0 % (36.0-47.0) Mean Corpuscular Volume 87 fL (79-100) Mean Corpuscular Hemoglobin 31 pg (25-35) Mean Corpuscular Hemoglobin Concent 35 g/dL (31-37) Red Cell Distribution Width 12.6 % (11.5-14.5) Platelet Count 266 x10^3/uL (140-400) Neutrophils (%) (Auto) 53 % (31-73) Lymphocytes (%) (Auto) 36 % (24-48) Monocytes (%) (Auto) 7 % (0-9) Eosinophils (%) (Auto) 3 % (0-3) Basophils (%) (Auto) 1 % (0-3) Neutrophils # (Auto) 4.7 x10^3/uL (1.8-7.7) Lymphocytes # (Auto) 3.2 x10^3/uL (1.0-4.8) Monocytes # (Auto) 0.7 x10^3/uL (0.0-1.1) Eosinophils # (Auto) 0.3 x10^3/uL (0.0-0.7) Basophils # (Auto) 0.1 x10^3/uL (0.0-0.2) Sodium Level 135 mmol/L (136-145) Potassium Level 3.9 mmol/L (3.5-5.1) Chloride Level 102 mmol/L (98-107) Carbon Dioxide Level 25 mmol/L (21-32) Anion Gap 8 (6-14) Blood Urea Nitrogen 11 mg/dL (7-20) Creatinine 1.0 mg/dL (0.6-1.0) Estimated GFR (Cockcroft-Gault) 55.0 Glucose Level 214 mg/dL (70-99) Calcium Level 8.0 mg/dL (8.5-10.1) Glucose (Fingerstick) 193 mg/dL (70-99) 196 mg/dL (70-99) Brief Hospital Course Ms. Garcia is a 69 old female who presented for a right mastectomy. She underwent surgery on 01/18/20 and appeared stable for discharge on POD 2. Internal medicine was consulted to assist with diabetes management while in the hospital. Discharge Information Condition at Discharge: Stable Follow Up: Weeks (1 week) Disposition/Orders: D/C to Home Scheduled Atorvastatin Calcium (Atorvastatin Calcium) 40 Mg Tablet, 40 MG PO DAILY for FOR CHOLESTEROL, #30 Ref 0 (Reported) Entered as Reported by: KIMBERLY CROW on 01/18/201058 Last Action: Continued on 01/18/201428 by GUIDO TENORIO Glipizide (Glipizide) 10 Mg Tablet, 20 MG PO DAILY for diabetes, (Reported) Entered as Reported by: KIMBERLY CROW on 01/18/201057 Last Action: Converted on 01/18/201428 by GUIDO TENORIO Insulin Glargine,Hum.rec.anlog (Lantus Solostar) 100 Unit/1 Ml Insuln.pen, 10 UNIT SQ QHS for DM2 for 30 Days, #1 Ref 3 Prescribed by: KARLA PEREZ MD on 01/20/20 1222 Lisinopril (Lisinopril) 40 Mg Tablet, 40 MG PO DAILY for FOR HYPERTENSION, #30 Ref 0 (Reported) Entered as Reported by: KIMBERLY CROW on 01/18/201057 Last Action: Continued on 01/18/201428 by GUIDO TENORIO Metformin Hcl (Metformin Hcl) 500 Mg Tablet, 500 MG PO BIDWMEALS for ANTI- DIABETIC, Ref 0 (Reported) Entered as Reported by: KIMBERLY CROW on 01/18/201057 Last Action: Continued on 01/18/201428 by GUIDO TENORIO Sitagliptin Phosphate (Januvia) 100 Mg Tablet, 100 MG PO DAILY for diabetes, (Reported) Entered as Reported by: KIMBERLY CROW on 01/18/201058 Last Action: Converted on 01/18/201428 by GUIDO TENORIO Justicifation of Admission Dx: Justifications for Admission: Justification of Admission Dx: Yes GUIDO TENORIO MD Jan 20, 2020 13:33
--- NOTE | 2020-01-20 14:47 | NUR ---
SW following. Discussed with RN, pt discharging home today with self care. No further SW needs.
[2020-01-20 15:05] VITALS: BP 102/55
--- NOTE | 2020-01-20 16:26 | NUR ---
Pt discharged home with self care. Discharge instructions and and prescriptions discussed. Dressing changed. Provided drain care instructions. IV removed. Pt assisted to wheelchair and was taken to ED entrance and was secured in car with .
--- NOTE | 2020-01-21 16:06 | PATHOLOGY ---
[facility] Accession Number: [id number] . 01 Material submitted: . PART A: lymph node - SENTINEL LYMPH NODES #1, RIGHT BREAST - FS. Modifiers: 1, right PART B: breast - SENTINEL LYMPH NODES #2, RIGHT BREAST - FS. Modifiers: right, 2 PART C: breast - RIGHT BREAST. Modifiers: right . 01 Clinical history: . Breast cancer . 02 Frozen section diagnosis: . INTRAOPERATIVE CONSULTATION WITH FROZEN SECTION (Dr. Ryan Sweet) . FSA1. [place] lymph node #1: - Negative for tumor. . The results are reported to Dr. Saleh in the operating room. . FSB1. [place] lymph node #2: - Negative for tumor. . The results are reported to Dr. Saleh in the operating room. The remainder of the lymph node is submitted for microscopy as B2-B4. . . GROSS PATHOLOGY A. The specimen is received fresh for intraoperative consultation and is designated "sentinel lymph node #1". This consists of a segment of yellow fatty tissue measuring up to 2.7 x 2.3 x 1.0 cm. There is an eccentric area of bluish discoloration. Sectioning reveals a lymph node showing focal fatty replacement measuring up to 1.8 cm in greatest dimension. The node shows focal bluish discoloration. This is submitted for frozen section as FSA1. The tissue remaining from frozen section is submitted for permanent sections as A1. . B. The specimen is received fresh for intraoperative consultation and designated "sentinel lymph node #2". This consists of a segment of yellow-red fatty appearing tissue measuring up to 3.5 x 2.8 x 1.4 cm. Sectioning reveals a large fatty appearing lymph node measuring up to 3.3 cm in greatest dimension. The lymph node has a thin rim of pink-palomo cortex and shows no gross evidence of tumor involvement. A chemical sales representative portion is submitted for frozen section as FSB1. . (JPM:helder; 01/18/2020) . Frozen section performed at [facility], [address] [place] [id number]. MELISSA/LUCY . 02 Diagnosis: A. Lymph node, right sentinel lymph node #1: - Negative for tumor. . B. Lymph node, sentinel lymph node #2: - Negative for tumor. . C. 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 - SEPARATE FOCUS OF INVASIVE DUCTAL CARCINOMA, HISTOLOGIC GRADE 2, MEDIAL TO RESIDUAL TUMOR MASS, MEASURING 1.2 CM IN GREATEST DIMENSION. 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 - DEEP MARGIN OF RESECTION NEGATIVE FOR TUMOR. - SINGLE INTRAMAMMARY LYMPH NODE OF UPPER OUTER QUADRANT NEGATIVE FOR TUMOR. - Proliferative fibrocystic changes showing focal moderate/florid ductal epithelial hyperplasia. - Sclerosing adenosis, focal. (JPM:pit:db 01/20/2020) . SURGICAL PATHOLOGY CANCER CASE SUMMARY Protocol posting date: August 2019 . INVASIVE CARCINOMA OF THE BREAST: Resection Procedure ___ Total mastectomy (including nipple-sparing and skin-sparing mastectomy) Specimen Laterality ___ Right + Tumor Site + ___ Central Tumor Size ___ Greatest dimension of largest invasive focus >1 mm: 12 mm Histologic Type ___ Invasive carcinoma of no special type (ductal) Histologic Grade ([place] Histologic Score) Glandular (Acinar)/Tubular Differentiation ___ Score 2 (10% to 75% of tumor area forming glandular/tubular structures) Nuclear Pleomorphism ___ Score 2 (cells larger than normal with open vesicular nuclei, visible nucleoli, and moderate variability in both size and shape) Mitotic Rate ___ Score 2 Overall Grade ___ Grade 2 (scores of 6 or 7) + Tumor Focality + ___ Multiple foci of invasive carcinoma + ___ Number of foci: 2 + Sizes of individual foci: 11 mm and 12 mm Ductal Carcinoma In Situ (DCIS) ___ Present + Size (Extent) of DCIS + Number of blocks with DCIS: 7 + Number of blocks examined: 16 + Architectural Patterns + ___ Cribriform + ___ Solid + Nuclear Grade + ___ Grade II (intermediate) + Necrosis + ___ Present, focal (small foci or single cell necrosis) + Lobular Carcinoma In Situ (LCIS) + ___ Not identified Tumor Extension Skin ___ Skin is present and uninvolved Nipple ___ DCIS does not involve the nipple epidermis Skeletal Muscle ___ No skeletal muscle is present Margins Invasive Carcinoma Margins ___ Uninvolved by invasive carcinoma Distance from closest margin: ___ Greater than 1 cm Specify closest margin: Deep margin DCIS Margins ___ Uninvolved by DCIS Distance from closest margin: ___ Greater than 1 cm Specify closest margin: Deep margin Regional Lymph Nodes ___ Uninvolved by tumor cells Total Number of Lymph Nodes Examined: 3 Number of [place] Nodes Examined: 2 + Lymphovascular Invasion + ___ Not identified + Dermal Lymphovascular Invasion + ___ Not identified . Pathologic Stage Classification (pTNM, AJCC 8th Edition) Primary Tumor (pT) ___ pT1c: Tumor >10 mm but < or equal to 20 mm in greatest dimension Regional Lymph Nodes (pN) ___ pN0: No regional lymph node metastasis identified + Additional Pathologic Findings + Specify: See diagnoses + Microcalcifications + ___ Present in DCIS + ___ Present in invasive carcinoma + ___ Present in non-neoplastic tissue (JPM/db; 01/21/2020) [facility] 01/21/2020 1018 Local . 02 Comment: The sentinel lymph nodes are examined at multiple levels. Immunoperoxidase stains for AE1/AE3 are also obtained on the sentinel lymph nodes and yield the following results: . AE1/AE3 (A1): Negative for tumor AE1/AE3 (B1): Negative for tumor AE1/AE3 (B2): Negative for tumor AE1/AE3 (B3): Negative for tumor AE1/AE3 (B4): Negative for tumor . Thus there are a total of two sentinel lymph nodes which are negative for tumor. (JPM:[facility] 01/20/2020) . Sections of the right mastectomy reveal a residual focus of invasive ductal carcinoma, histologic grade 2, within the central breast with associated previous biopsy site changes. Medial to this mass, there appears to be a separate focus of invasive ductal carcinoma, histologic grade 2. Bridging the gap between the two lesions, there is ductal carcinoma in situ, low to intermediate grade. The margins of resection are negative for tumor. Within the upper outer quadrant, there is a single intramammary lymph node which is negative for tumor. (JPM/db; 01/21/2020) . Special stains performed: Immunoperoxidase stains for AE1/AE3 on A1, B1, B2, B3 and B4 . 02 Electronically signed: . Ryan Sweet MD, Pathologist NPI- [id number] . 01 Gross description: . A. PLEASE SEE GROSS DESCRIPTION DICTATED UNDER FROZEN SECTION. . B. PLEASE SEE GROSS DESCRIPTION DICTATED UNDER FROZEN SECTION. . C. The specimen is received in formalin, labeled "Becka Garcia, right breast, stitch at 12:00". Received is a 1029 g mastectomy specimen measuring 23.4 cm from medial to lateral, 18.6 cm from superior to inferior, and 6.1 cm from anterior to posterior. On the anterior aspect of the specimen, there is an ellipse of skin measuring 18.7 x 9.9 cm with an eccentrically located everted nipple and areolar complex, measuring 1.3 x 1.2 and 5.3 x 4.7 cm, respectively. The epidermal surface also displays several pink-palomo to pink-red lesions ranging in size from 0.2 x 0.2 to 0.3 x 0.3 cm. The specimen is inked as follows: Superior/anterior-blue, inferior/anterior-green, posterior-black. The specimen is sectioned and placed into formalin for adequate fixation prior to further sectioning. (CAA; 01/18/2020) . After adequate overnight fixation, further sectioning through the specimen reveals a hemorrhagic previous biopsy site, with plastic markers identified, measuring 1.8 x 0.6 x 0.3 cm, which is located 1.0 cm posterior to the nipple along the junction between all four quadrants. Surrounding the biopsy site is a pale palomo, firm mass measuring 1.0 x 0.8 x 0.7 cm in greatest dimensions, which is 0.8 cm posterior to the epidermal surface. This mass is located along the junction between all four quadrants. Immediately medial to the mass, there is an area of fat necrosis surrounded by stellate fibrous tissue measuring 1.2 x 1.0 x 0.5 cm, which is 1.2 cm posterior to the epidermal surface. The area is located along the junction between the upper inner and lower inner quadrants. The remainder of the specimen displays bright yellow fibrofatty cut surfaces with approximately 3% fibrous tissue present, as well as a moderate amount of residual blue dye. No additional nodules or lesions are noted grossly. Within the upper outer quadrant, a single lymph node is identified measuring 1.4 cm displaying pink-palomo cut surfaces. The specimen is submitted chemical sales representative as follows: . C1 perpendicular section through nipple C2 chemical sales representative sections of skin lesions C3-C11 entire previous biopsy site with surrounding mass submitted from lateral to medial aspects C12-C14 entire fibrous area immediately medial to the mass submitted from lateral to medial aspects C15-C16 entire lymph node, serially sectioned C17 upper outer quadrant C18 lower outer quadrant C19 lower inner quadrant C20 inner quadrant. (CAA; 01/19/2020) QAC/MBR 01/19/2020 1518 Local . 02 Pathologist provided ICD-10: C50.911, D05.11 . 02 CPT . 375734, [id number], 534127, 299571, [id number], [id number] Specimen Comment: A courtesy copy of this report has been sent to [phone], [phone] Specimen Comment: [id number] Specimen Comment: Report sent to / Performed at: 01 [facility] [address], [place], [place] [id number] MD Miguel Holman MD Phone: [phone] Performed at: 02 [facility] [address] [place], [place] [id number] MD Ryan Sweet MD Phone: [phone]
== END 2020-01-20 16:29 | disposition home or self-care (01) ==
LOC: SURG 10:11 → 4 NORTH 15:10
PROVIDERS: ADMIT Surgery; ATTEND Surgery
DX: C50.911 Malignant neoplasm of unspecified site of right female breast (principal); D64.9 Anemia, unspecified; E11.9 Type 2 diabetes mellitus without complications; E87.6 Hypokalemia; F17.210 Nicotine dependence, cigarettes, uncomplicated; N17.9 Acute kidney failure, unspecified
CPT/HCPCS: 19307; 36415; 38792; 38900; 80048; 80053; 81001; 82962; 83036; 83540; 83550; 85025; 87086; 88307; 88331; 88342; 96374; 96375; 97116; 97161; A7015; A9520; G0378; G0379; J1100; J1170; J1815; J1956; J2405; J2704; J3010; J3490; J7030; J7120; Q9968

== ENCOUNTER → 2020-02-11 | Outpatient (CLI) | payer MEDICARE, OTHER ==
[2020-01-20 15:05] VITALS: BP 102/55
[~2020-02-11] MED LIST changes: +ATOR40TA59 PO; +GLIP10TA13 PO; -HYDROmorphone 2 MG/ML VIAL IV PRN; +INSU100I13 SQ; -ISOSULFAN BLUE 1% 50 MG/5 ML VIAL. SQ ONE; -IV RINGERS,LACTATED 1000ML 1,000 ML IV SCH; -LIDOCAINE 1% PF 2 ML VIAL. ID PRN; +LISI-130 PO; +METF500T16 PO; -MORPHINE SULFATE 2 MG/ML VIAL. IV PRN; -ONDANSETRON PF 4 MG/2 ML VIAL. IV PRN; -PROCHLORPERAZINE 10 MG/2 ML VIAL. IV PRN; +SITA100T PO; -fentaNYL PF VIAL 100 MCG/2 ML VIAL IV PRN
[2020-02-11 12:47] LABS: BASO # 0.1 x10^3/uL (0.0-0.2); BASO % 1 % (0-3); EOS # 0.5 x10^3/uL (0.0-0.7); EOS % 5 % (0-3); HEMATOCRIT 33.8 % (36.0-47.0); HEMOGLOBIN 11.7 g/dL (12.0-15.5); LYMPH # 2.2 x10^3/uL (1.0-4.8); LYMPH % 22 % (24-48); MEAN CORPUSCULAR HEMOGLOBIN 30 pg (25-35); MEAN CORPUSCULAR HGB CONC 35 g/dL (31-37); MEAN CORPUSCULAR VOLUME 87 fL (79-100); MONO # 0.6 x10^3/uL (0.0-1.1); MONO % 6 % (0-9); NEUT # 6.7 x10^3/uL (1.8-7.7); NEUT % 67 % (31-73); PLATELET COUNT 398 x10^3/uL (140-400); RED CELL DISTRIBUTION WIDTH 13.4 % (11.5-14.5)
[2020-02-11 13:01] LABS: CREATININE 0.8 mg/dL (0.6-1.0); GFR 71.1; POTASSIUM 4.1 mmol/L (3.5-5.1)
[2020-02-11 13:07] LABS: ALBUMIN 3.9 g/dL (3.4-5.0); ALBUMIN/GLOBULIN RATIO 1.1 (1.0-1.7); TOTAL BILIRUBIN 0.4 mg/dL (0.2-1.0); TOTAL PROTEIN 7.5 g/dL (6.4-8.2)
== END | disposition home or self-care (01) ==
LOC: ONCLAB 12:08
PROVIDERS: ATTEND Internal Medicine Hematology & Oncology
DX: C50.111 Malignant neoplasm of central portion of right female breast (principal)
CPT/HCPCS: 36415; 80053; 85025

== ENCOUNTER → 2020-06-07 | Outpatient (CLI) | payer MEDICARE, OTHER ==
--- NOTE | 2020-06-07 14:00 | KCIC ---
EXAM: Dual energy x-ray absorptiometry (DEXA). HISTORY: Invasive ductal carcinoma, postmenopausal. COMPARISON: None available. TECHNIQUE: Dual energy x-ray absorptiometry of the lumbar spine and left hip was performed. Calculation of bone mineral density based on standard deviations above or below the expected young adult normal value (T-score) was completed. FINDINGS: The average bone mineral density in the 1st through 4th lumbar vertebrae is 1.118 g/cmxcm, corresponding with a T-score of 0.6. The average total bone mineral density in the left hip is 0.899 g/cmxcm, corresponding with a T-score of -0.4. IMPRESSION: Findings are within the range of normal bone density with relation spine and left hip. Note: Definitions established by the World Health Organization: 1. Normal: T-score is -1.0 or above. 2. Osteopenia: T-score is between -1.0 and -2.5 . 3. Osteoporosis: T-score is -2.5 or below. Electronically signed by: Gemma Blair MD (06/07/2020 1:57 PM) [facility]
== END ==
LOC: KCIC DEXA 09:32
PROVIDERS: ATTEND Internal Medicine Hematology & Oncology
DX: C50.111 Malignant neoplasm of central portion of right female breast (principal); N95.8 Other specified menopausal and perimenopausal disorders
CPT/HCPCS: 77080

== ENCOUNTER → 2021-05-22 | Outpatient (CLI) | payer MEDICARE, OTHER ==
[2021-05-22 09:08] LABS: BASO % 0 % (0-3); EOS # 0.2 x10^3/uL (0.0-0.7); EOS % 2 % (0-3); HEMOGLOBIN 12.5 g/dL (12.0-15.5); LYMPH # 1.4 x10^3/uL (1.0-4.8); LYMPH % 20 % (24-48); MEAN CORPUSCULAR HEMOGLOBIN 30 pg (25-35); MEAN CORPUSCULAR HGB CONC 34 g/dL (31-37); MEAN CORPUSCULAR VOLUME 87 fL (79-100); MONO # 0.4 x10^3/uL (0.0-1.1); MONO % 5 % (0-9); NEUT # 5.3 x10^3/uL (1.8-7.7); NEUT % 73 % (31-73); PLATELET COUNT 322 x10^3/uL (140-400); RED BLOOD COUNT 4.25 x10^6/uL (3.50-5.40); WHITE BLOOD COUNT 7.3 x10^3/uL (4.0-11.0)
[2021-05-22 09:18] LABS: CREATININE 0.9 mg/dL (0.6-1.0); GFR 61.9
[2021-05-22 09:24] LABS: ALBUMIN 3.8 g/dL (3.4-5.0); ALBUMIN/GLOBULIN RATIO 1.1 (1.0-1.7); TOTAL BILIRUBIN 0.6 mg/dL (0.2-1.0); TOTAL PROTEIN 7.3 g/dL (6.4-8.2)
== END ==
LOC: ONCLAB 08:34
PROVIDERS: ATTEND Physician Assistant
DX: C50.111 Malignant neoplasm of central portion of right female breast (principal); Z79.811 Long term (current) use of aromatase inhibitors
CPT/HCPCS: 36415; 80053; 82306; 83615; 85025

== ENCOUNTER → 2021-08-29 | Outpatient (CLI) | payer MEDICARE, OTHER ==
[2021-08-29 09:52] LABS: BASO % 1 % (0-3); EOS # 0.1 x10^3/uL (0.0-0.7); EOS % 2 % (0-3); HEMATOCRIT 39.6 % (36.0-47.0); HEMOGLOBIN 13.5 g/dL (12.0-15.5); LYMPH # 2.1 x10^3/uL (1.0-4.8); LYMPH % 32 % (24-48); MEAN CORPUSCULAR HEMOGLOBIN 29 pg (25-35); MEAN CORPUSCULAR HGB CONC 34 g/dL (31-37); MEAN CORPUSCULAR VOLUME 86 fL (79-100); MONO # 0.4 x10^3/uL (0.0-1.1); MONO % 7 % (0-9); NEUT # 3.8 x10^3/uL (1.8-7.7); NEUT % 60 % (31-73); PLATELET COUNT 296 x10^3/uL (140-400); RED BLOOD COUNT 4.61 x10^6/uL (3.50-5.40); RED CELL DISTRIBUTION WIDTH 13.2 % (11.5-14.5); WHITE BLOOD COUNT 6.5 x10^3/uL (4.0-11.0)
[2021-08-29 10:10] LABS: CALCIUM 9.4 mg/dL (8.5-10.1); CREATININE 0.9 mg/dL (0.6-1.0); GFR 61.9; POTASSIUM 4.1 mmol/L (3.5-5.1)
[2021-08-29 10:15] LABS: TOTAL BILIRUBIN 0.6 mg/dL (0.2-1.0); TOTAL PROTEIN 8.1 g/dL (6.4-8.2)
== END ==
LOC: ONCLAB 09:10
PROVIDERS: ATTEND Physician Assistant
DX: C50.111 Malignant neoplasm of central portion of right female breast (principal); E55.9 Vitamin D deficiency, unspecified
CPT/HCPCS: 36415; 80053; 82306; 83615; 85025